=== PATIENT | male | born 1995 | race Caucasian/White ===

== ENCOUNTER 2016-10-29 16:39 | Emergency (ER) | payer OTHER ==
[~2016-10-29] VITALS: Ht 170.2 cm; Wt 61.3 kg
[2016-10-29 16:51] VITALS: TEMP 36.5; Ht 170.2 cm; Wt 61.3 kg
[2016-10-29] MEDS ORDERED: PROPARACAINE HCL 0.5% OP SOLN 15 ML BTL ONE (16:54)
--- NOTE | 2016-10-29 17:35 | EMERGENCY ROOM VISIT NOTE ---
ED Visit Note First contact with patient: 17:08 CHIEF COMPLAINT: Foreign body of the eye HISTORY OF PRESENT ILLNESS: This 20-year-old male patient presents to the emergency department approximately 9 hours after getting pieces of wood in his right eye. Patient states he was working, cutting a 2 x 4 piece of wood with a circular saw, while wearing safety glasses, when he began experiencing extreme pain and foreign body sensation in his right eye. He attempted to flush the eye several times with water, and states he had several people look at his eye for foreign body. He has not been able to locate the foreign body. Patient is currently Complaining of pain and foreign body sensation in the aspect of the right eye eye. Pain is worse when looking towards the right. There has been a constant moderate pain and irritation, redness and tearing in the eye. The vision has not been decreased over all, however patient does complain of blurriness in the right eye. The patient does not wear contacts. The patient rates the pain as 7/10. The patient has not had previous injuries to this eye. Tetanus shot is up to date. REVIEW OF SYSTEMS: A 6 system review of systems was completed with positives and pertinent negatives listed in the HPI. ALLERGIES: None MEDICATIONS: None PMH: None SOCIAL HISTORY: Patient lives locally with his family. Patient reports occasional alcohol use, smokes 1 pack of cigarettes per day, denies drug use. PHYSICAL EXAM: Vital Signs: Reviewed Nurse's notes, vital signs stable. Visual acuity 20/20. GENERAL: This is a 20-year-old male, in no acute distress, but who is uncomfortable from the eye problem. Well-developed well-nourished. EYES : The pupils are equal round and reactive to light and accommodation. EOMs are full and without tenderness. There is watery discharge from the right eye which is injected. There is no visible abrasion on the cornea. There is no foreign body visible under the eyelid after lid eversion. No foreign body was seen embedded in the cornea under slit lamp exam. The cornea was clear and no hyphema was seen. Fluorescein uptake was observed with ultraviolet light significant for several small corneal abrasions, to the right of the pupil. EMERGENCY DEPARTMENT COURSE: I examined the patient. Alcaine 2 drops were placed in the patient's right eye. A slit lamp exam was performed as above. Verbal consent was obtained to perform the procedure. Pt's eye flushed via Ziggy Lens irrigation with 1000mL NSS. The patient was discharged home in good condition, but advised to use antibiotic ointment and pain medication as prescribed. DIAGNOSIS: Foreign body with subsequent corneal abrasion of the right eye DISCHARGE INSTRUCTIONS AND TREATMENT: Use erythromycin ointment 6 times per day for 10 days unless otherwise instructed by ophthalmology. Use Ibuprofen 600 mg or Tylenol 1000 mg every 6 hrs as needed for moderate pain. Use Tylenol #3 tablet every four to six hours when pain breaks through the Ibuprofen or Tylenol. See your eye doctor in 24-48 hours for a recheck. Return to the ED for increasing pain or changes in vision. Problem List Medical Problems: (1) No significant medical problems Status: Chronic (2) No significant past surgical history Status: Chronic Current/Historical Medications Scheduled Erythromycin Opth (Erythromycin Opth), 1 CM OPR Q4 Scheduled PRN Acetaminophen/Codeine (Tylenol W/Codeine #3), 1 TAB PO Q4H PRN for Pain Allergies Coded Allergies: No Known Allergies (Unverified , 07/31/14) Vital Signs Date Time Temp Pulse Resp B/P (MAP) Pulse Ox O2 Delivery O2 Flow Rate FiO2 10/29/16 16:51 36.5 65 20 121/81 99 Room Air Medications Administered Medications (Trade) Dose Ordered Sig/Machelle Route Start Time Stop Time Status Last Admin Dose Admin Proparacaine HCl (Alcaine 0.5% Oph Soln) 225 drops STK-MED ONCE .ROUTE 10/29/16 16:54 10/29/16 16:55 DC 10/29/16 17:37 225 DROPS Departure Information Impression Primary Impression: Cornea abrasion Dispostion Home / Self-Care Condition GOOD Prescriptions Acetaminophen/Codeine (Tylenol W/Codeine #3) 300 Mg/30 Mg Tab 1 TAB PO Q4H Y for Pain, #18 TAB For Initial Treatment Prov: Humaira Acuna PA-C 10/29/16 Erythromycin Opth (ERYTHROMYCIN OPTH) 12 Appln/3.5 Gm Oint 1 CM OPR Q4 for 7 Days, #1 TUBE 0 Refills Prov: Humaira Acuna PA-C 10/29/16 Referrals No Doctor, Assigned (PCP) Cristi Drake M.D. 1-2 days Patient Instructions My [facility] Additional Instructions You have been treated in the Emergency Department today for your Corneal Abrasion. You have been prescribed Tylenol #3 to be used for pain control. This is a narcotic medication. You cannot drive or consume alcohol while on this medicine. This medicine should only be used for pain that cannot be controlled with juqv-vwf-septjjy pain medicines. You have been prescribed Erythromycin Opthalmic ointment. This is an antibiotic ointment which will help prevent an infection from developing in your affected eye. You should apply a 1 cm ribbon of the ointment to the lower part of the affected eye up to 6 times per day for the next 10 days. For pain control, you can use the following eicr-jrz-qlodlrq medicines (if >12 yo): - Regular strength (325mg/tab) Tylenol (acetaminophen) 2 tabs every 4-6 hours as needed. Do not exceed 12 tablets in a 24 hour period. Avoid taking more than 4 grams (4000 mg) of Tylenol per day. This includes any other sources of acetaminophen you may take on a regular basis and including Tylenol with codeine prescribed today. - Regular strength (200 mg/tab) Advil (ibuprofen) 1-2 tabs every 4-6 hours as needed. Do not exceed a dose of 3200 mg per day. You should relax in a quiet, dark place for the rest of the day. You should wear sunglasses while outside for the next few days until your eyes are not as sensitive to the light. You should schedule a follow-up appointment in 1-2 days with Eye Doctor ( Dog Sitter) for further evaluation and treatment of your Corneal Abrasion. Return to the Emergency Department if your current symptoms worsen despite treatment course outlined above, or if you develop any of the following symptoms : intractable pain, visual disturbances, loss of vision, increased redness, swelling, drainage, or if you develop a fever. Problem Qualifiers Primary Impression: Cornea abrasion Encounter type: initial encounter Laterality: right Qualified Codes: S05.01XA - Injury of conjunctiva and corneal abrasion without foreign body, right eye, initial encounter
[2016-10-29] MEDS ORDERED: ERYOPO OPR (18:37)
[2016-10-29] MEDS ORDERED: ACET-749 PO (18:37)
[2016-10-29 18:51] VITALS: BP 112/93; PULSE 74; O2SAT 98
== END 2016-10-29 18:54 | disposition home or self-care (01) ==
LOC: C.EDB 16:39 → C.EDD 18:54
DX: S05.01XA Injury of conjunctiva and corneal abrasion without foreign body, right eye, initial encounter (principal); W20.8XXA Other cause of strike by thrown, projected or falling object, initial encounter; Y99.0 Civilian activity done for income or pay; Y93.89 Activity, other specified; F17.210 Nicotine dependence, cigarettes, uncomplicated

== ENCOUNTER 2016-11-05 01:03 | Emergency (ER) | payer SELFPAY ==
[~2016-11-05] VITALS: Ht 167.6 cm; Wt 62.9 kg
[~2016-11-05 01:03] MED LIST changes: -IBUP-103 PO; -OXYC1TAB3 PO
[2016-11-05 01:08] VITALS: TEMP 36.6; Ht 167.6 cm; Wt 62.9 kg
[2016-11-05] MEDS ORDERED: SODIUM CHLORIDE 0.9% 1000ML 1,000 ML IV STA (01:11)
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
[2016-11-05 01:35] LABS: URINE APPEARANCE CLEAR (CLEAR); URINE BILIRUBIN NEG (NEG); URINE COLOR YELLOW; URINE NITRITE NEG (NEG); URINE SPECIFIC GRAVITY 1.008 (1.000-1.030); UROBILINOGEN NEG (NEG)
[2016-11-05 01:37] LABS: MANUAL MICROSCOPIC REQUIRED? NO; REVIEW REQ? NO
[2016-11-05 01:44] LABS: HEMATOCRIT 44.4 % (42-52); MEAN CELL VOLUME 92.5 fL (80-100); MEAN CORPUSCULAR HEMOGLOBIN 33.1 pg (25-34); MEAN CORPUSCULAR HGB CONC 35.8 g/dl (32-36); MEAN PLATELET VOLUME 8.4 fL (7.4-10.4); PLATELET COUNT 294 K/uL (130-400); WHITE BLOOD COUNT 7.75 K/uL (4.8-10.8)
[2016-11-05 01:45] VITALS: O2SAT 98
[2016-11-05 02:01] LABS: BENZODIAZEPINE, URINE NEG (NEG); COCAINE,URINE NEG (NEG); PHENCYCLIDINE, URINE NEG (NEG)
[2016-11-05 02:14] LABS: AST/SGOT 114 U/L (15-37)
[2016-11-05 02:19] LABS: ALKALINE PHOSPHATASE 84 U/L (45-117); ALT/SGPT 234 U/L (12-78); BLOOD UREA NITROGEN 9 mg/dl (7-18); BUN/CREATININE RATIO 13.9 (10-20); CALCIUM 7.9 mg/dl (8.5-10.1); CARBON DIOXIDE 25 mmol/L (21-32); CHLORIDE 108 mmol/L (98-107); CREATININE 0.72 mg/dl (0.60-1.40); GLUCOSE 93 mg/dl (70-99)
[2016-11-05 02:24] LABS: SODIUM 145 mmol/L (136-145)
[2016-11-05 05:02] VITALS: BP 98/65
[2016-11-05 06:00] VITALS: PULSE 83; O2SAT 100
--- NOTE | 2016-11-05 07:17 | DIAGNOSTIC IMAGING REPORT ---
HEAD CT NONCONTRAST CT DOSE: 537.48 mGy.cm HISTORY: head pain TECHNIQUE: Multiaxial CT images of the head were performed without the use of intravenous contrast. Automated exposure control was utilized for this study. Comparison: Head CT 05/27/2013. Findings: The paranasal sinuses and mastoid air cells are clear. The calvarium and skull base are intact. The ventricles and sulci are within normal limits. There is no mass, hematoma, midline shift, or acute infarct. Impression: No acute intracranial abnormality. Electronically signed by: Fede Reyes M.D. 11/05/2016 7:16 AM Dictated Date/Time: 11/05/2016 7:13 AM
== END 2016-11-05 06:30 | disposition home or self-care (01) ==
LOC: EDBD 01:03 → C.EDA 01:04
DX: F10.129 Alcohol abuse with intoxication, unspecified (principal); S09.90XA Unspecified injury of head, initial encounter; F17.200 Nicotine dependence, unspecified, uncomplicated; W50.0XXA Accidental hit or strike by another person, initial encounter

== ENCOUNTER → 2016-11-05 | Outpatient (CLI) | payer OTHER ==
[~2016-11-05] MED LIST: ACET-749 PO; ERYOPO OPR; IBUP-103 PO; OXYC1TAB3 PO
== END | disposition home or self-care (01) ==
LOC: C.LAB 01:19
DX: Z02.83 Encounter for blood-alcohol and blood-drug test (principal)

== ENCOUNTER → 2017-01-12 | Outpatient (CLI) | payer OTHER ==
[~2017-01-12] MED LIST changes: +OXYC1TAB3 PO
== END | disposition home or self-care (01) ==
LOC: C.LAB 07:03
DX: Z02.83 Encounter for blood-alcohol and blood-drug test (principal)

== ENCOUNTER 2017-03-05 18:06 | Emergency (ER) | payer OTHER ==
[~2017-03-05] VITALS: Ht 167.6 cm; Wt 61.0 kg
[~2017-03-05 18:06] MED LIST changes: -OXYC1TAB3 PO
[2017-03-05 18:35] VITALS: TEMP 36.6; Ht 167.6 cm; Wt 61.0 kg
[2017-03-05] MEDS ORDERED: OXYCODONE HCL IR 5 MG TAB (IMMEDIATE RELEASE) PO STA (19:00)
--- NOTE | 2017-03-05 19:25 | DIAGNOSTIC IMAGING REPORT ---
LEFT FOOT 3 VIEWS CLINICAL HISTORY: Left foot pain status post trauma COMPARISON: None. DISCUSSION: No acute fractures or dislocations are visualized. IMPRESSION: No fractures identified. Electronically signed by: Pedro Vann M.D. 03/05/2017 7:24 PM Dictated Date/Time: 03/05/2017 7:22 PM
--- NOTE | 2017-03-05 19:26 | DIAGNOSTIC IMAGING REPORT ---
Left tibia and fibula 2 VIEWS CLINICAL HISTORY: Left lower leg pain status post trauma COMPARISON: None. DISCUSSION: No fractures or dislocations are visualized. IMPRESSION: No fractures identified. Electronically signed by: Pedro Vann M.D. 03/05/2017 7:25 PM Dictated Date/Time: 03/05/2017 7:24 PM
[2017-03-05] MEDS ORDERED: OXYCODONE IR HOME PACK PO STA (19:34)
[2017-03-05] MEDS ORDERED: OXYC1TAB3 PO (19:36)
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
[2017-03-05 20:24] VITALS: BP 112/66; PULSE 87; O2SAT 97
== END 2017-03-05 20:24 | disposition home or self-care (01) ==
LOC: C.EDB 18:09 → C.EDD 20:24
DX: M79.672 Pain in left foot (principal); X50.9XXA Other and unspecified overexertion or strenuous movements or postures, initial encounter; F17.200 Nicotine dependence, unspecified, uncomplicated

== ENCOUNTER 2017-04-10 15:45 | Emergency (ER) | payer SELFPAY ==
[~2017-04-10] VITALS: Ht 167.6 cm; Wt 59.7 kg
[~2017-04-10 15:45] MED LIST changes: -ACET-749 PO; -ERYOPO OPR; +OXYC1TAB3 PO
[2017-04-10 15:51] VITALS: TEMP 36.5; Ht 167.6 cm; Wt 59.7 kg
[2017-04-10] MEDS ORDERED: OXYCODONE HCL IR 5 MG TAB (IMMEDIATE RELEASE) PO STA (15:57)
--- NOTE | 2017-04-10 16:15 | EMERGENCY ROOM VISIT NOTE ---
History Report prepared by Don: Dorita Reyes Under the Supervision of: Mely ErnstO. First contact with patient: 15:54 Chief Complaint: RIB PAIN Stated Complaint: BROKEN RIB OR TORN MUSCLE History of Present Illness The patient is a 21 year old male who presents to the Emergency Room with complaints of constant left-sided rib pain secondary to a fall occurring yesterday afternoon. The patient was carrying wood in his arms and tripped and fell. He threw the wood aside but saw unable to get his arms out in front of him to catch himself. He landed on the ground on his left shoulder and the left side of his chest. He has been having pain since this fall. Last night the patient took ibuprofen for pain and placed ice on the area. Today he is continuing to have pain. The patient rates his pain as a 7/10 in severity. Coughing, sneezing, and deep inspiration exacerbate his pain. This morning he had some nausea. The patient denies any abdominal pain. He has had some mild back pain as well. Source of History: patient Onset: yesterday afternoon Position: other (left-sided ribs) Symptom Intensity: 7/10 Timing: constant Modifying Factors (Worsening): breathing, other (cough/sneezing) Modifying Factors (Relieving): ibuprofen, ice Associated Symptoms: + nausea, + back pain, No abdominal pain Review of Systems See HPI for pertinent positives & negatives. A total of 10 systems reviewed and were otherwise negative. Past Medical & Surgical Medical Problems: (1) No significant medical problems (2) No significant past surgical history Family History No pertinent family history Social History Smoking Status: Current Every Day Smoker Alcohol Use: occasionally Marital Status: single Housing Status: lives with family Occupation Status: employed Current/Historical Medications Scheduled PRN Ibuprofen Tab (Advil), 400 MG PO Q6H PRN for Pain Oxycodone Immediate Rel Tab (Roxicodone Ir), 1-2 TAB PO Q4H PRN for Severe Pain Allergies Coded Allergies: No Known Allergies (Unverified , 03/05/17) Physical Exam Vital Signs Date Time Temp Pulse Resp B/P (MAP) Pulse Ox O2 Delivery O2 Flow Rate FiO2 04/10/17 17:07 80 16 123/99 99 04/10/17 16:25 98 Room Air 04/10/17 15:51 36.5 92 18 120/79 96 Room Air Physical Exam GENERAL: Patient is awake, alert, and in no acute distress. Patient is resting comfortably and showing no signs of anxiety EYES: The conjunctivae are clear. The pupils are round and reactive. EARS, NOSE, MOUTH AND THROAT: The nose is without any evidence of any deformity. Mucous membranes are moist tongue is midline NECK: The neck is nontender and supple. RESPIRATORY: Normal respiratory effort is noted there is no evidence of wheezing rhonchi or rales CARDIOVASCULAR: Regular rate and rhythm noted there no murmurs rubs or gallops normal S1 normal S2 GASTROINTESTINAL: The abdomen is soft. Bowel sounds are present in all quadrants. Abdomen is nontender BACK: No midline tenderness or or step-off noted range of motion in flexion extension as well as rotation no signs of muscle spasm noted MUSCULOSKELETAL/EXTREMITIES: There is no evidence of gross deformity full range of motion is noted in the hips and shoulders. Significant left lateral rib tenderness as well as sternal tenderness to palpation, no crepitus. SKIN: There is no obvious evidence of any rash. There are no petechiae, pallor or cyanosis noted. NEUROLOGIC: Patient is awake alert and oriented x3 Medical Decision & Procedures ER Provider Diagnostic Interpretation: Radiology results as stated below per my review and radiologist interpretation: L RIBS UNILATERAL WITH PA CHEST HISTORY: 21 years-old Male fall acute anterior chest wall pain with cough and shortness of breath status post trauma COMPARISON: None available TECHNIQUE: PA view of the chest with 4 views of the left ribs FINDINGS: Cardiomediastinal and hilar silhouettes are within normal limits. There is no pneumothorax, pleural effusion, focal airspace consolidation or overt pulmonary edema. The bones of the chest appear intact. No acute displaced rib fracture identified. IMPRESSION: 1. No acute cardiopulmonary process. 2. No acute displaced rib fracture or pneumothorax. The above report was generated using voice recognition software. It may contain grammatical, syntax or spelling errors. Electronically signed by: Jose Roe M.D. 04/10/2017 4:28 PM Dictated Date/Time: 04/10/2017 4:26 PM Medications Administered Medications (Trade) Dose Ordered Sig/Machelle Route Start Time Stop Time Status Last Admin Dose Admin Oxycodone HCl (Roxicodone Immediate Rel Tab) 5 mg NOW STAT PO 04/10/17 15:57 04/10/17 15:58 DC 04/10/17 16:20 5 MG ED Course 1554: The patient was evaluated in room C11B. A complete history and physical examination were performed. 1557: Oxycodone HCl 5 mg PO 1643: I reassessed the patient at this time. He is feeling better and resting comfortably. I discussed the results and treatment plan with the patient. I answered all pertaining questions that he had. He expressed understanding and verbalized agreement. The patient will be discharged home. Medical Decision Differential diagnosis: Etiologies such as fracture, dislocation, neurovascular compromise, compartment syndrome, soft tissue injury, as well as others were entertained. Nursing notes reviewed. The patient is a 21-year-old male who presented to emergency department after an injury to his chest wall. The patient fell while carrying an object. He landed onto his left side. He had significant left rib pain as well as sternal pain. X-rays did not reveal any acute abdomen abnormalities. I discussed his radiographic studies with him. He was treated with pain medication. At this time I do feel he may have a clinical rib fracture. I discussed this possibility with him. He was encouraged to rest and avoid any strenuous activity. He was also encouraged to follow-up with his family doctor soon as possible for further evaluation. He was also encouraged return to emergency department immediately if symptoms change worsen or the need arises. Medication Reconcilliation Current Medication List: was personally reviewed by me Blood Pressure Screening Patient's blood pressure: Normal blood pressure Impression Primary Impression: Fall Additional Impressions: Contusion of rib on left side Chest wall contusion Scribe Attestation The scribe's documentation has been prepared under my direction and personally reviewed by me in its entirety. I confirm that the note above accurately reflects all work, treatment, procedures, and medical decision making performed by me. Departure Information Dispostion Home / Self-Care Prescriptions Oxycodone Immediate Rel Tab (ROXICODONE IR) 5 Mg Tab 1-2 TAB PO Q4H Y for Severe Pain, #24 TAB Prov: Cristi Trejo, DO 04/10/17 Referrals No Doctor, Assigned (PCP) Forms HOME CARE DOCUMENTATION FORM, IMPORTANT VISIT INFORMATION, WORK / SCHOOL INSTRUCTIONS Patient Instructions ED Contusion Vs Minor Fx Rib, [facility] Additional Instructions Continue using Motrin and Tylenol for pain. Rest and avoid any strenuous activity. Follow-up with your family doctor for repeat x-rays if symptoms are not improved in 1 week. Return to the emergency apartment immediately if symptoms change worsen or need arises. Continue using Motrin and Tylenol as directed for pain. Problem Qualifiers Primary Impression: Fall Encounter type: initial encounter Qualified Codes: W19.XXXA - Unspecified fall, initial encounter Additional Impressions: Contusion of rib on left side Encounter type: initial encounter Qualified Codes: S20.212A - Contusion of left front wall of thorax, initial encounter Chest wall contusion Encounter type: initial encounter Laterality: unspecified laterality Qualified Codes: S20.219A - Contusion of unspecified front wall of thorax, initial encounter
[2017-04-10 16:25] VITALS: O2SAT 98
--- NOTE | 2017-04-10 16:29 | DIAGNOSTIC IMAGING REPORT ---
L RIBS UNILATERAL WITH PA CHEST HISTORY: 21 years-old Male fall acute anterior chest wall pain with cough and shortness of breath status post trauma COMPARISON: None available TECHNIQUE: PA view of the chest with 4 views of the left ribs FINDINGS: Cardiomediastinal and hilar silhouettes are within normal limits. There is no pneumothorax, pleural effusion, focal airspace consolidation or overt pulmonary edema. The bones of the chest appear intact. No acute displaced rib fracture identified. IMPRESSION: 1. No acute cardiopulmonary process. 2. No acute displaced rib fracture or pneumothorax. The above report was generated using voice recognition software. It may contain grammatical, syntax or spelling errors. Electronically signed by: Jose Roe M.D. 04/10/2017 4:28 PM Dictated Date/Time: 04/10/2017 4:26 PM
[2017-04-10] MEDS ORDERED: IBUP-103 PO (16:32)
[2017-04-10] MEDS ORDERED: OXYC1TAB3 PO (16:39)
[2017-04-10 17:07] VITALS: BP 123/99; PULSE 80; O2SAT 99
== END 2017-04-10 17:09 | disposition home or self-care (01) ==
LOC: C.EDB 15:46 → C.EDC 17:09
DX: S20.212A Contusion of left front wall of thorax, initial encounter (principal); W01.0XXA Fall on same level from slipping, tripping and stumbling without subsequent striking against object, initial encounter; Y92.89 Other specified places as the place of occurrence of the external cause; F17.210 Nicotine dependence, cigarettes, uncomplicated

== ENCOUNTER 2018-08-28 14:40 | Inpatient (IN) ==
[2018-08-28] MEDS ORDERED: ONDANSETRON INJ 2 MG/ML 2 ML VIAL IV STA (14:46)
[2018-08-28] MEDS ORDERED: LORazepam 2 MG/4 ML VIAL IV STA ×2 (14:46→14:54)
[2018-08-28] MEDS ORDERED: SODIUM CHLORIDE 0.9% 1000ML 2,000 ML IV SCH (15:00)
[2018-08-28 15:08] LABS: Hematocrit (blood only) 49.6 % (42-52); Hemoglobin 17.4 g/dL (14.0-18.0); Mean Corpuscular Hgb Conc 35.1 g/dL (32-36); Mean Corpuscular Volume 93.2 fL (80-100); Mean Platelet Volume 9.1 fL (7.4-10.4); Platelet Count 423 K/uL (130-400); RDW Coefficient of Variation 12.5 % (11.5-14.5); RDW Standard Deviation 42.7 fL (36.4-46.3); Red Blood Count 5.32 M/uL (4.7-6.1)
[2018-08-28] MEDS ORDERED: HALOPERIDOL LACTATE 5 MG/ML 1 ML VIAL ONE (15:16)
[2018-08-28 15:19] LABS: INR 1.3 (0.9-1.1); Prothrombin Time 12.9 Seconds (9.0-12.0)
[2018-08-28] MEDS ORDERED: DiphenhydrAMINE HCL 50 MG/ML VIAL IV STA (15:20)
[2018-08-28 15:28] LABS: Albumin Level 4.3 gm/dl (3.4-5.0); BUN Creatinine Ratio 15.5 (10-20); Calcium 8.6 mg/dl (8.5-10.1); Creatinine Clr Calc Pharmacy 37.7 ml/min; Potassium 4.9 mmol/L (3.5-5.1)
[2018-08-28 15:29] LABS: Basophils # (auto) 0.02 K/uL (0-0.2); Basophils % (auto) 0.1 %; Eosinophils # (auto) 0.02 K/uL (0-0.5); Eosinophils % (auto) 0.1 %; Immature Granulocytes # (auto) 0.18 K/uL (0.00-0.02); Immature Granulocytes % (auto) 0.9 %; Lymphocytes % (auto) 13.3 %; Monocytes # (auto) 0.63 K/uL (0.11-0.59); Neutrophils # (auto) 17.35 K/uL (1.4-6.5); Neutrophils % (auto) 82.6 %
[2018-08-28 15:30] LABS: Bilirubin,Total 0.9 mg/dl (0.2-1); Globulin 4.1 gm/dl (2.5-4.0); Total Protein 8.4 gm/dl (6.4-8.2)
[2018-08-28 15:32] LABS: Salicylate < 1.7 mg/dl (2.8-20)
[2018-08-28 15:33] LABS: Acetaminophen < 2 ug/ml (10-30)
[2018-08-28 15:39] LABS: Amphetamines+Metham, Urine Pos (Neg); Barbiturates, Urine Neg (Neg); Benzodiazepine, Urine Neg (Neg); Cocaine, Urine Neg (Neg); MDMA (Ecstacy), Urine Pos (Neg); Methadone, Urine Neg (Neg); Opiate, Urine Pos (Neg); Phencyclidine, Urine Neg (Neg)
[2018-08-28 15:51] LABS: iSTAT Arterial Blood Gas HCO3 22 meg/L (19-24); iSTAT Arterial Blood Gas pCO2 62 mmHg (35-46); iSTAT Arterial Blood Gas pH 7.16 (7.35-7.45); iSTAT Carbon Dioxide 24 mEq/l (24-31); iSTAT Hematocrit 42 % (42-52); iSTAT Hemoglobin 14.3 g/dl (14.0-18.0); iSTAT Potassium 4.6 mEq/L (3.3-5.0); iSTAT Sodium 137 mEq/L (135-144)
--- NOTE | 2018-08-28 16:01 | XRay Report ---
XR chest 1V portable HISTORY: 22 years-old Male AMS acutely altered mental status COMPARISON: Chest and rib radiographs 04/10/2017 TECHNIQUE: Portable AP view of the chest FINDINGS: Hazy perihilar opacities are noted throughout the left lung in a perihilar predominant distribution. Additional ill-defined opacities are noted about the right suprahilar lung and right lung apex. Bones appear intact. No opaque foreign body. IMPRESSION: Asymmetric opacities throughout the left lung within a perihilar predominant distribution and also wi thin the right lung apex are suspicious for multifocal pneumonia in the appropriate clinical setting. The above report was generated using voice recognition software. It may contain grammatical, syntax o r spelling errors. Electronically signed by: Jose Roe M.D. 08/28/2018 4:00 PM
[2018-08-28 16:10] LABS: Magnesium 3.4 mg/dl (1.8-2.4)
--- NOTE | 2018-08-28 16:14 | CT Scan Report ---
CT head/brain wo con CLINICAL HISTORY: 22 years-old Male with AMS. Acutely altered mental status with drug abuse TECHNIQUE: Multiple axial CT images of the head were obtained without contrast. A dose lowering tech nique was utilized adhering to the principles of ALARA. CT DOSE: 537.48 mGy.cm COMPARISON: CT head 11/05/2016 FINDINGS: No acute intracranial hemorrhage, midline shift, intracranial mass, hydrocephalus, territorial ischem ia or abnormal extra-axial collection. The calvarium is intact. The paranasal sinuses, mastoid air cells, and middle ear cavities are clear . IMPRESSION: No acute intracranial abnormality. The above report was generated using voice recognition software. It may contain grammatical, syntax o r spelling errors. Electronically signed by: Jose Roe M.D. 08/28/2018 4:12 PM
[2018-08-28 16:15] LABS: iSTAT Arterial Blood Gas HCO3 17 meg/L (19-24); iSTAT Arterial Blood Gas pCO2 42 mmHg (35-46); iSTAT Arterial Blood Gas pH 7.22 (7.35-7.45); iSTAT Carbon Dioxide 19 mEq/l (24-31)
[2018-08-28] MEDS ORDERED: PIPERACILL/TAZOBAC CONSULT ACTIVE PRN (16:17)
[2018-08-28] MEDS ORDERED: PIPERACILLIN/TAZOBACTAM 4.5 GM/120 ML BAG IV ONE (16:17)
[2018-08-28 16:20] LABS: Troponin I 0.07 ng/ml (0-0.045)
[2018-08-28] MEDS ORDERED: ICU PROTOCOL FOR HYPERGLYCEMIA PRN (17:11)
--- NOTE | 2018-08-28 17:23 | Emergency Department Note ---
Entered by Nupur Holland acting as a scribe for Nery Carrington MD History of Present Illness General Chief complaint: Overdose (Intentional) Stated complaint: drug overdose/cardiac Time Seen by Provider: 08/28/18 14:46 Source: EMS Limitations: altered mental status History of Present Illness Provider complaint: overdose Onset (ago): hour(s) (today) Location: left and right Quality: + other (overdose) Treatments prior to arrival: other (Narcan) The patient is a 22 year old male who presents to the Emergency Room with an overdose today. Per EMS, the patient reportedly overdosed on methamphetamine and heroin and got out of [facility] 2 weeks ago. Per EMS, the patient was in [facility] for 30 days and then was in [facility] for 30 days. EMS states that the patient was in respiratory arrest. He was given Narcan by the police and CPR was initiated. Upon EMS arrival, the patient had a cardiac rhythm and began to respond. History is limited due to altered mental status. Home Medications Home Medications Medication Instructions Recorded Confirmed Type Unobtainable 08/28/18 08/28/18 History Allergies Allergy/AdvReac Type Severity Reaction Status Date / Time No Known Allergies Allergy Unverified 03/05/17 18:45 Past Med/Surg History Medical History Drug abuse (Acute) Pulmonary contusion (Resolved) Social History Smoking Status: Current every day smoker Hx Substance Use: Yes Review of Systems Limited ROS secondary to AMS. Physical Exam Vital Signs Vital Signs - 24 hr 08/28/18 14:52 08/28/18 15:13 08/28/18 15:38 Temperature 32.8 C L Temperature Source Rectal Sepsis Recent Fever Within 48 Hours No Sepsis New/Unexplained Change in Mental Status No Sepsis Action Taken by Nursing No Action Required Pulse Rate 119 H Pulse Rate [Apical] 127 H Pulse Rhythm Regular Pulse Strength Normal Respiratory Rate 26 H 30 H Respiratory Effort / Characteristics Non-Labored Respiratory Pattern Regular Blood Pressure 180/118 H Blood Pressure [Right Thigh] 95/59 L Blood Pressure Mean 138 Blood Pressure Mean [Right Thigh] 71 Blood Pressure Position [Right Thigh] Lying Pulse Oximetry 90 Oxygen Delivery Method Room Air Non-rebreather Oxygen Flow Rate 10 08/28/18 16:16 08/28/18 17:11 08/28/18 17:45 Temperature Temperature Source Sepsis Recent Fever Within 48 Hours Sepsis New/Unexplained Change in Mental Status Sepsis Action Taken by Nursing Pulse Rate Pulse Rate [Apical] 115 H 121 H 121 H Pulse Rhythm Pulse Strength Respiratory Rate 30 H 35 H 33 H Respiratory Effort / Characteristics Respiratory Pattern Blood Pressure Blood Pressure [Right Thigh] 110/64 119/50 L 99/81 L Blood Pressure Mean Blood Pressure Mean [Right Thigh] 79 73 87 Blood Pressure Position [Right Thigh] Lying Pulse Oximetry 100 96 98 Oxygen Delivery Method Non-rebreather Oxymask Oxymask Oxygen Flow Rate 10 10 10 08/28/18 18:08 Temperature Temperature Source Sepsis Recent Fever Within 48 Hours Sepsis New/Unexplained Change in Mental Status Sepsis Action Taken by Nursing Pulse Rate Pulse Rate [Apical] 108 H Pulse Rhythm Pulse Strength Respiratory Rate 22 Respiratory Effort / Characteristics Respiratory Pattern Blood Pressure Blood Pressure [Right Thigh] 108/73 Blood Pressure Mean Blood Pressure Mean [Right Thigh] 84 Blood Pressure Position [Right Thigh] Pulse Oximetry 97 Oxygen Delivery Method Room Air Oxygen Flow Rate Vital signs reviewed. General: Disheveled, agitated, moaning. Being restrained by security. Hypothermic. No signs of trauma. HEENT: Mild scleral injection bilaterally, PERRLA, neck supple, dry mucous membranes. Cardiovascular: Tachycardic rate and regular rhythm, no extra sounds. Pulmonary: Coarse breath sounds bilaterally, normal work of breathing. On nonrebreather Abdomen: Soft, nontender, nondistended, positive bowel sounds. Musculoskeletal: Upper and lower extremities atraumatic, no peripheral edema Skin: Warm, dry, no rash. Atraumatic. Neurologic: Patient is currently nonverbal. Course 1445: Past medical records reviewed. The patient was evaluated in room A1, and a complete history and physical examination were performed. 1502: I updated the patient's parents. 1622: I reevaluated the patient. He does respond to a sternal rub. His O2 sat is 100% on a non-rebreather. He is getting IV fluids. 1633: I discussed the patient's case with Dr. Ivan Pedraza who will evaluate the patient for further management. Consultations Consultation #1: Dr. Ivan Pedraza Time: 16:33 Administered Medications Discontinued Medications Diphenhydramine HCl (Benadryl) 50 mg IV NOW STA Stop: 08/28/18 15:21 Last Admin: 08/28/18 15:37 Dose: 50 mg Documented by: [id number] Haloperidol Lactate (Haldol) Confirm Administered Dose 5 mg .ROUTE .STK-MED ONE Stop: 08/28/18 15:17 Last Admin: 08/28/18 15:19 Dose: 5 mg Documented by: [id number] Lorazepam (Ativan) 2 mg in 4 mls @ 4 mls/min IV NOW STA Stop: 08/28/18 14:47 Last Admin: 08/28/18 15:14 Dose: 4 mls/min Documented by: [id number] Sodium Chloride (Nss 1000ml) 2,000 mls @ 999 mls/hr IV .Q2H1M BHAVANI Stop: 08/28/18 17:00 Last Infusion: 08/28/18 17:19 Dose: 0 mls/hr Documented by: [id number] Admin: 08/28/18 15:14 Dose: 999 mls/hr Documented by: [id number] Lorazepam (Ativan) 2 mg in 4 mls @ 4 mls/min IV NOW STA Stop: 08/28/18 14:55 Last Admin: 08/28/18 14:55 Dose: 4 mls/min Documented by: [id number] Piperacillin Sod/Tazobactam Sod (Zosyn) 4.5 gm in 120 mls @ 240 mls/hr IV NOW ONE Stop: 08/28/18 16:46 Last Infusion: 08/28/18 17:50 Dose: 0 mls/hr Documented by: [id number] Admin: 08/28/18 16:34 Dose: 240 mls/hr Documented by: [id number] Ondansetron HCl (Zofran) 4 mg IV NOW STA Stop: 08/28/18 14:47 Last Admin: 08/28/18 15:37 Dose: 4 mg Documented by: [id number] Medical Decision Making Differential Diagnosis The differential diagnosis of the patient's presentation includes alcohol ingestion, illicit drug use, trauma, and dehydration. Medical Records Attestation: I reviewed the patient's medical records. Home Medications Current Medication List: was personally reviewed by me Laboratory Data Attestation: I reviewed the patient's lab results. Result diagrams: 08/28/18 14:55 08/28/18 14:55 Lab Results 08/28/18 08/28/18 08/28/18 Range/Units 14:55 14:55 14:55 WBC (4.8-10.8) K/uL RBC (4.7-6.1) M/uL Hgb (14.0-18.0) g/dL POC Hgb (14.0-18.0) g/dl Hct (42-52) % POC Hct (42-52) % MCV (80-100) fL MCH (25-34) pg MCHC (32-36) g/dL RDW Std Deviation (36.4-46.3) fL RDW Coeff of He (11.5-14.5) % Plt Count (130-400) K/uL MPV (7.4-10.4) fL Immature Gran % (Auto) % Neut % (Auto) % Lymph % (Auto) % Bradley % (Auto) % Eos % (Auto) % Baso % (Auto) % Immature Gran # (Auto) (0.00-0.02) K/uL Neut # (Auto) (1.4-6.5) K/uL Lymph # (Auto) (1.2-3.4) K/uL Bradley # (Auto) (0.11-0.59) K/uL Eos # (Auto) (0-0.5) K/uL Baso # (Auto) (0-0.2) K/uL PT 12.9 H (9.0-12.0) Seconds INR 1.3 H (0.9-1.1) POC pH (7.35-7.45) POC pCO2 (35-46) mmHg POC pO2 (80-95) mmHg POC HCO3 (19-24) dk/L POC Total CO2 (24-31) mEq/l POC Base Excess (-9-1.8) dk/L POC ABG O2 Sat (90-95) % POC Sodium (135-144) mEq/L Sodium (136-145) mmol/L POC Potassium (3.3-5.0) mEq/L Potassium (3.5-5.1) mmol/L Chloride (98-107) mmol/L Carbon Dioxide (21-32) mmol/L Anion Gap (3-11) BUN (7-18) mg/dl Creatinine (0.6-1.4) mg/dl Est Cr Clr Drug Dosing ml/min Est GFR ( Amer) Est GFR (Non-Af Amer) BUN/Creatinine Ratio (10-20) Glucose (70-99) mg/dl Lactate (0.4-2.0) mmol/L Calcium (8.5-10.1) mg/dl Magnesium (1.8-2.4) mg/dl Total Bilirubin (0.2-1) mg/dl AST (15-37) U/L ALT (12-78) U/L Alkaline Phosphatase (45-117) U/L Total Creatine Kinase (39-308) U/L Troponin I (0-0.045) ng/ml Total Protein (6.4-8.2) gm/dl Albumin (3.4-5.0) gm/dl Globulin (2.5-4.0) gm/dl Albumin/Globulin Ratio (0.9-2) Salicylates < 1.7 L (2.8-20) mg/dl Urine Opiates Screen (Neg) Ur Methadone, Qual (Neg) Acetaminophen < 2 L (10-30) ug/ml Urine Barbiturates (Neg) Ur Phencyclidine (PCP) (Neg) U Amphetamin/Meth Scrn (Neg) MDMA (Ecstasy) Screen (Neg) U Benzodiazepines Scrn (Neg) Ur Cocaine Metabolite (Neg) U Marijuana (THC) Screen (Neg) Ethyl Alcohol mg/dL < 3.0 (0-3) mg/dl 08/28/18 08/28/18 08/28/18 Range/Units 14:55 14:55 15:10 WBC 21.00 H (4.8-10.8) K/uL RBC 5.32 (4.7-6.1) M/uL Hgb 17.4 (14.0-18.0) g/dL POC Hgb (14.0-18.0) g/dl Hct 49.6 (42-52) % POC Hct (42-52) % MCV 93.2 (80-100) fL MCH 32.7 (25-34) pg MCHC 35.1 (32-36) g/dL RDW Std Deviation 42.7 (36.4-46.3) fL RDW Coeff of He 12.5 (11.5-14.5) % Plt Count 423 H (130-400) K/uL MPV 9.1 (7.4-10.4) fL Immature Gran % (Auto) 0.9 % Neut % (Auto) 82.6 % Lymph % (Auto) 13.3 % Bradley % (Auto) 3.0 % Eos % (Auto) 0.1 % Baso % (Auto) 0.1 % Immature Gran # (Auto) 0.18 H (0.00-0.02) K/uL Neut # (Auto) 17.35 H (1.4-6.5) K/uL Lymph # (Auto) 2.80 (1.2-3.4) K/uL Bradley # (Auto) 0.63 H (0.11-0.59) K/uL Eos # (Auto) 0.02 (0-0.5) K/uL Baso # (Auto) 0.02 (0-0.2) K/uL PT (9.0-12.0) Seconds INR (0.9-1.1) POC pH (7.35-7.45) POC pCO2 (35-46) mmHg POC pO2 (80-95) mmHg POC HCO3 (19-24) dk/L POC Total CO2 (24-31) mEq/l POC Base Excess (-9-1.8) dk/L POC ABG O2 Sat (90-95) % POC Sodium (135-144) mEq/L Sodium 140 (136-145) mmol/L POC Potassium (3.3-5.0) mEq/L Potassium 4.9 (3.5-5.1) mmol/L Chloride 100 (98-107) mmol/L Carbon Dioxide 24 (21-32) mmol/L Anion Gap 16.0 H (3-11) BUN 36 H (7-18) mg/dl Creatinine 2.33 H (0.6-1.4) mg/dl Est Cr Clr Drug Dosing 37.7 ml/min Est GFR ( Amer) 44.0 Est GFR (Non-Af Amer) 38.0 BUN/Creatinine Ratio 15.5 (10-20) Glucose 143 H (70-99) mg/dl Lactate (0.4-2.0) mmol/L Calcium 8.6 (8.5-10.1) mg/dl Magnesium 3.4 H (1.8-2.4) mg/dl Total Bilirubin 0.9 (0.2-1) mg/dl AST 303 H (15-37) U/L ALT 275 H (12-78) U/L Alkaline Phosphatase 111 (45-117) U/L Total Creatine Kinase 849 H (39-308) U/L Troponin I 0.070 H* (0-0.045) ng/ml Total Protein 8.4 H (6.4-8.2) gm/dl Albumin 4.3 (3.4-5.0) gm/dl Globulin 4.1 H (2.5-4.0) gm/dl Albumin/Globulin Ratio 1.0 (0.9-2) Salicylates (2.8-20) mg/dl Urine Opiates Screen Pos H (Neg) Ur Methadone, Qual Neg (Neg) Acetaminophen (10-30) ug/ml Urine Barbiturates Neg (Neg) Ur Phencyclidine (PCP) Neg (Neg) U Amphetamin/Meth Scrn Pos H (Neg) MDMA (Ecstasy) Screen Pos H (Neg) U Benzodiazepines Scrn Neg (Neg) Ur Cocaine Metabolite Neg (Neg) U Marijuana (THC) Screen Pos H (Neg) Ethyl Alcohol mg/dL (0-3) mg/dl 08/28/18 08/28/18 08/28/18 Range/Units 15:37 15:54 16:59 WBC (4.8-10.8) K/uL RBC (4.7-6.1) M/uL Hgb (14.0-18.0) g/dL POC Hgb 14.3 (14.0-18.0) g/dl Hct (42-52) % POC Hct 42 (42-52) % MCV (80-100) fL MCH (25-34) pg MCHC (32-36) g/dL RDW Std Deviation (36.4-46.3) fL RDW Coeff of He (11.5-14.5) % Plt Count (130-400) K/uL MPV (7.4-10.4) fL Immature Gran % (Auto) % Neut % (Auto) % Lymph % (Auto) % Bradley % (Auto) % Eos % (Auto) % Baso % (Auto) % Immature Gran # (Auto) (0.00-0.02) K/uL Neut # (Auto) (1.4-6.5) K/uL Lymph # (Auto) (1.2-3.4) K/uL Bradley # (Auto) (0.11-0.59) K/uL Eos # (Auto) (0-0.5) K/uL Baso # (Auto) (0-0.2) K/uL PT (9.0-12.0) Seconds INR (0.9-1.1) POC pH 7.16 L* 7.22 L (7.35-7.45) POC pCO2 62 H 42 (35-46) mmHg POC pO2 < 32 L 56 L (80-95) mmHg POC HCO3 22 17 L (19-24) dk/L POC Total CO2 24 19 L (24-31) mEq/l POC Base Excess -7.0 -10.0 L (-9-1.8) dk/L POC ABG O2 Sat 83.0 L (90-95) % POC Sodium 137 (135-144) mEq/L Sodium (136-145) mmol/L POC Potassium 4.6 (3.3-5.0) mEq/L Potassium (3.5-5.1) mmol/L Chloride (98-107) mmol/L Carbon Dioxide (21-32) mmol/L Anion Gap (3-11) BUN (7-18) mg/dl Creatinine (0.6-1.4) mg/dl Est Cr Clr Drug Dosing ml/min Est GFR ( Amer) Est GFR (Non-Af Amer) BUN/Creatinine Ratio (10-20) Glucose (70-99) mg/dl Lactate 3.1 H* (0.4-2.0) mmol/L Calcium (8.5-10.1) mg/dl Magnesium (1.8-2.4) mg/dl Total Bilirubin (0.2-1) mg/dl AST (15-37) U/L ALT (12-78) U/L Alkaline Phosphatase (45-117) U/L Total Creatine Kinase (39-308) U/L Troponin I (0-0.045) ng/ml Total Protein (6.4-8.2) gm/dl Albumin (3.4-5.0) gm/dl Globulin (2.5-4.0) gm/dl Albumin/Globulin Ratio (0.9-2) Salicylates (2.8-20) mg/dl Urine Opiates Screen (Neg) Ur Methadone, Qual (Neg) Acetaminophen (10-30) ug/ml Urine Barbiturates (Neg) Ur Phencyclidine (PCP) (Neg) U Amphetamin/Meth Scrn (Neg) MDMA (Ecstasy) Screen (Neg) U Benzodiazepines Scrn (Neg) Ur Cocaine Metabolite (Neg) U Marijuana (THC) Screen (Neg) Ethyl Alcohol mg/dL (0-3) mg/dl Imaging Data Radiologist's Impression: Radiology results as stated below per my review and the radiologist's interpretation: XR chest 1V portable HISTORY: 22 years-old Male AMS acutely altered mental status COMPARISON: Chest and rib radiographs 04/10/2017 TECHNIQUE: Portable AP view of the chest FINDINGS: Hazy perihilar opacities are noted throughout the left lung in a perihilar predominant distribution. Additional ill-defined opacities are noted about the right suprahilar lung and right lung apex. Bones appear intact. No opaque foreign body. IMPRESSION: Asymmetric opacities throughout the left lung within a perihilar predominant distribution and also within the right lung apex are suspicious for multifocal pneumonia in the appropriate clinical setting. The above report was generated using voice recognition software. It may contain grammatical, syntax or spelling errors. Electronically signed by: Jose Roe M.D. 08/28/2018 4:[address] head/brain wo con CLINICAL HISTORY: 22 years-old Male with AMS. Acutely altered mental status with drug abuse TECHNIQUE: Multiple axial CT images of the head were obtained without contrast. A dose lowering technique was utilized adhering to the principles of ALARA. CT DOSE: 537.48 mGy.cm COMPARISON: CT head 11/05/2016 FINDINGS: No acute intracranial hemorrhage, midline shift, intracranial mass, hydrocephalus, territorial ischemia or abnormal extra-axial collection. The calvarium is intact. The paranasal sinuses, mastoid air cells, and middle ear cavities are clear. IMPRESSION: No acute intracranial abnormality. The above report was generated using voice recognition software. It may contain grammatical, syntax or spelling errors. Electronically signed by: Jose Roe M.D. 08/28/2018 4:12 PM ECG Data Attestation: I personally reviewed and interpreted this ECG as follows: Indication: other (overdose) Rate (beats per minute): 123 Rhythm: sinus tachycardia Findings: + other (poor quality baseline for interpretation, QTC 501) and + nonspecific-ST abn Blood Pressure Blood Pressure Findings: Low blood pressure Blood Pressure Disposition: further management by hospitalist KELSI Suarez Laboratory work reveals a leukocytosis and an elevated total CK. Patient is also found to be in acute renal failure with a creatinine of two-pointThis patient was evaluated and appeared to be in critical condition. Patient was placed on the splitting machine tender, pulse ox was difficult to obtain initially. As the patient was agitated and being restrained, 2 mg of Ativan was administered IV. IV fluids were initiated. Patient's EKG reveals sinus tachycardia with a poor quality baseline. Patient is noted to have a marked leukocytosis, elevated total CK of approximately 900 and a total creatinine of 2.33. Urine is significant for methamphetamines, opiates, THC and marijuana. Patient required an additional Ativan 2 mg IV and Benadryl 50 mg IV, IV fluids were continued. Chest x-ray is concerning for infiltrative process. The initial ABG is felt to be erroneous with a pH of 7.16 and a PO2 of less than 32. Repeat ABG was performed with a pH of 7.22 and a PO2 of 56. On my reevaluation, the patient was saturating 100% on nonrebreather. He is noted to be markedly hypothermic and is receiving warmed IV fluids and is on a Shae hugger. The patient may have aspirated during the respiratory arrest. Patient's family was at the bedside briefly however they did leave. Patient was discussed with the hospitalist service will evaluate the patient for further management. Impression & Plan Drug overdose, Altered mental status, Aspiration pneumonia, Respiratory arrest, Hypothermia Critical Care Time I have personally spent greater than 60 minutes of critical care time in the direct management of this patient. This includes bedside care, interpretation of diagnostic studies, and testing, discussion with consultants, patient, and family members, and other required patient management activities. This 60 minutes is in excess of all separately billable procedures. Critical Care Time: Yes Total Critical Care Time: 60 Discharge Plan Visit Data Chief Complaint: Overdose (Intentional) Stated Complaint: drug overdose/cardiac ED Provider: Nery Carrington Discharge Problem: Drug overdose, Altered mental status, Aspiration pneumonia, Respiratory arrest, Hypothermia Patient Disposition: Being Evaluated by Hospitalist Forms Stand Alone Forms: [facility] Prescriptions Prescriptions: No Action Unobtainable RF: 0 Referrals Referrals: PCP,NO [Primary Care Provider] - The scribe's documentation has been prepared under my direction and personally reviewed by me in its entirety. I confirm that the note above accurately reflec ts all work, treatment, procedures, and medical decision making performed by me.
[2018-08-28] MEDS ORDERED: NALOXONE HCL 0.4 MG/1 ML VIAL/CARP IV PRN (17:32)
[2018-08-28] MEDS ORDERED: POTASSIUM CHLORIDE 10 MEQ in SODIUM CHLORIDE 0.45 % 1,000 ML IV SCH (18:15)
--- NOTE | 2018-08-28 18:49 | Critical Care Consultation ---
Date of Consultation August 28, 2018 Assessment & Plan (1) Drug overdose: Neuro- altered mental status due to toxic metabolic encephalopathy due to drug overdose. nothing in history to suggest intentional overdose CV- HD stable. lactic acidosis recheck after fluids Pulmonary- protecting airway for now. titrate fio2 for sat >92%. respiratory arrest at home doubt cardiac arrest ID- infiltrate L lung pneumonia vs pneumonitis. can monitor off abx for now. received one dose of piperacillin-tazobactam in ED Renal- acute renal failure likely prerenal continue fluids GI- NPO for now Heme- leukocytosis. enoxaparin proph Endocrine- keep blood sugar <180 Dispo- admit to ICU for airway monitoring I have personally spent 45 minutes of critical care time in the direct management of this patient. This is a life/limb threatening event. This includes time spent evaluating patient, direct bedside care, chart review, placing orders, interpretation of diagnostic studies, discussion with consultants, patient, and/or family members regarding treatment decisions, as well as other required patient management activities. This time is exclusive of all separately billable procedures, and teaching time and separate from and in addition to any other critical care service time. History of Present Illness Reason for Consultation: altered mental status History of Present Illness 22 y/o male with history of drug abuse who presents after being found unresponsive by his father. He recently got out of rehab. By report he overdosed on methamphetamine and heroin. He had respiratory arrest and was given naloxone and CPR was done when EMS arrived he had a pulse. In the ED he was agitated. He recieved a total of 5 mg of haloperidol, 4 mg of lorazepam, 50 mg of diphenhydramine. He was hypothermic and found to have infiltrates on CXR and given piperacillin-tazobactam Allergies Allergy/AdvReac Type Severity Reaction Status Date / Time No Known Allergies Allergy Unverified 03/05/17 18:45 Home Medications Home Medications Medication Instructions Recorded Confirmed Type Unobtainable 08/28/18 08/28/18 History Patient History Medical History Drug abuse (Acute) Pulmonary contusion (Resolved) Social History Preferred Language: Lithuanian Histologist Required: No Beliefs That Will Affect Care: None Current Living Situation: Parent Feels Safe at Home: Declines to Answer Smoking Status: Current every day smoker Hx Substance Use: Yes Review of Systems unable to obtain with mental status Physical Exam Vital Signs (Past 24 Hours): Last Vital Signs Temp 32.8 C L 08/28/18 14:52 Pulse 108 H 08/28/18 18:08 Resp 22 08/28/18 18:08 BP 108/73 08/28/18 18:08 Pulse Ox 98 08/28/18 18:44 Physical Exam: Constitutional: Comfortable NAD restrained x 4 HEENT: normocephalic atraumatic. MMM. no cervical lymphadenopathy CV: tachycarda nl s1,s2 no murmurs rubs or gallops Lungs: clear to auscultation bilaterally. no accessory muscle use Abd: soft nontender nondistended. normal bowel sounds Ext: no edema. no cyanosis, no clubbing Skin: warm dry multiple glass to arms and legs Neuro: lethargic. moving all extremities Psych: lethargic Results & Data Laboratory Results Laboratory Results - last 24 hr 08/28/18 08/28/18 08/28/18 14:55 14:55 14:55 WBC RBC Hgb POC Hgb Hct POC Hct MCV MCH MCHC RDW Std Deviation RDW Coeff of He Plt Count MPV Immature Gran % (Auto) Neut % (Auto) Lymph % (Auto) [place] % (Auto) Eos % (Auto) Baso % (Auto) Immature Gran # (Auto) Neut # (Auto) Lymph # (Auto) [place] # (Auto) Eos # (Auto) Baso # (Auto) PT 12.9 H INR 1.3 H POC pH POC pCO2 POC pO2 POC HCO3 POC Total CO2 POC Base Excess POC ABG O2 Sat POC Sodium Sodium POC Potassium Potassium Chloride Carbon Dioxide Anion Gap BUN Creatinine Est Cr Clr Drug Dosing Est GFR ( Amer) Est GFR (Non-Af Amer) BUN/Creatinine Ratio Glucose Lactate Calcium Magnesium Total Bilirubin AST ALT Alkaline Phosphatase Total Creatine Kinase Troponin I Total Protein Albumin Globulin Albumin/Globulin Ratio Salicylates < 1.7 L Urine Opiates Screen Ur Methadone, Qual Acetaminophen < 2 L Urine Barbiturates Ur Phencyclidine (PCP) U Amphetamin/Meth Scrn MDMA (Ecstasy) Screen U Benzodiazepines Scrn Ur Cocaine Metabolite U Marijuana (THC) Screen Ethyl Alcohol mg/dL < 3.0 08/28/18 08/28/18 08/28/18 14:55 14:55 15:10 WBC 21.00 H RBC 5.32 Hgb 17.4 POC Hgb Hct 49.6 POC Hct MCV 93.2 MCH 32.7 MCHC 35.1 RDW Std Deviation 42.7 RDW Coeff of He 12.5 Plt Count 423 H MPV 9.1 Immature Gran % (Auto) 0.9 Neut % (Auto) 82.6 Lymph % (Auto) 13.3 [place]haw % (Auto) 3.0 Eos % (Auto) 0.1 Baso % (Auto) 0.1 Immature Gran # (Auto) 0.18 H Neut # (Auto) 17.35 H Lymph # (Auto) 2.80 [place]haw # (Auto) 0.63 H Eos # (Auto) 0.02 Baso # (Auto) 0.02 PT INR POC pH POC pCO2 POC pO2 POC HCO3 POC Total CO2 POC Base Excess POC ABG O2 Sat POC Sodium Sodium 140 POC Potassium Potassium 4.9 Chloride 100 Carbon Dioxide 24 Anion Gap 16.0 H BUN 36 H Creatinine 2.33 H Est Cr Clr Drug Dosing 37.7 Est GFR ( Amer) 44.0 Est GFR (Non-Af Amer) 38.0 BUN/Creatinine Ratio 15.5 Glucose 143 H Lactate Calcium 8.6 Magnesium 3.4 H Total Bilirubin 0.9 AST 303 H ALT 275 H Alkaline Phosphatase 111 Total Creatine Kinase 849 H Troponin I 0.070 H* Total Protein 8.4 H Albumin 4.3 Globulin 4.1 H Albumin/Globulin Ratio 1.0 Salicylates Urine Opiates Screen Pos H Ur Methadone, Qual Neg Acetaminophen Urine Barbiturates Neg Ur Phencyclidine (PCP) Neg U Amphetamin/Meth Scrn Pos H MDMA (Ecstasy) Screen Pos H U Benzodiazepines Scrn Neg Ur Cocaine Metabolite Neg U Marijuana (THC) Screen Pos H Ethyl Alcohol mg/dL 08/28/18 08/28/18 08/28/18 15:37 15:54 16:59 WBC RBC Hgb POC Hgb 14.3 Hct POC Hct 42 MCV MCH MCHC RDW Std Deviation RDW Coeff of He Plt Count MPV Immature Gran % (Auto) Neut % (Auto) Lymph % (Auto) [place] % (Auto) Eos % (Auto) Baso % (Auto) Immature Gran # (Auto) Neut # (Auto) Lymph # (Auto) [place] # (Auto) Eos # (Auto) Baso # (Auto) PT INR POC pH 7.16 L* 7.22 L POC pCO2 62 H 42 POC pO2 < 32 L 56 L POC HCO3 22 17 L POC Total CO2 24 19 L POC Base Excess -7.0 -10.0 L POC ABG O2 Sat 83.0 L POC Sodium 137 Sodium POC Potassium 4.6 Potassium Chloride Carbon Dioxide Anion Gap BUN Creatinine Est Cr Clr Drug Dosing Est GFR ( Amer) Est GFR (Non-Af Amer) BUN/Creatinine Ratio Glucose Lactate 3.1 H* Calcium Magnesium Total Bilirubin AST ALT Alkaline Phosphatase Total Creatine Kinase Troponin I Total Protein Albumin Globulin Albumin/Globulin Ratio Salicylates Urine Opiates Screen Ur Methadone, Qual Acetaminophen Urine Barbiturates Ur Phencyclidine (PCP) U Amphetamin/Meth Scrn MDMA (Ecstasy) Screen U Benzodiazepines Scrn Ur Cocaine Metabolite U Marijuana (THC) Screen Ethyl Alcohol mg/dL Diagnostic Findings XR chest 1V portable HISTORY: 22 years-old Male AMS acutely altered mental status COMPARISON: Chest and rib radiographs 04/10/2017 TECHNIQUE: Portable AP view of the chest FINDINGS: Hazy perihilar opacities are noted throughout the left lung in a perihilar predominant distribution. Additional ill-defined opacities are noted about the right suprahilar lung and right lung apex. Bones appear intact. No opaque foreign body. IMPRESSION: Asymmetric opacities throughout the left lung within a perihilar predominant distribution and also within the right lung apex are suspicious for multifocal pneumonia in the appropriate clinical setting. The above report was generated using voice recognition software. It may contain grammatical, syntax or spelling errors. Electronically signed by: Jose Roe M.D. 08/28/2018 4:[address] head/brain wo con CLINICAL HISTORY: 22 years-old Male with AMS. Acutely altered mental status with drug abuse TECHNIQUE: Multiple axial CT images of the head were obtained without contrast. A dose lowering technique was utilized adhering to the principles of ALARA. CT DOSE: 537.48 mGy.cm COMPARISON: CT head 11/05/2016 FINDINGS: No acute intracranial hemorrhage, midline shift, intracranial mass, hydrocephalus, territorial ischemia or abnormal extra-axial collection. The calvarium is intact. The paranasal sinuses, mastoid air cells, and middle ear cavities are clear. IMPRESSION: No acute intracranial abnormality. The above report was generated using voice recognition software. It may contain grammatical, syntax or spelling errors. Electronically signed by: Jose Roe M.D. 08/28/2018 4:12 PM (1) Drug overdose Encounter type: initial encounter Injury intent: undetermined intent Qualified Code(s): T50.904A - Poisoning by unspecified drugs, medicaments and biological substances, undetermined, initial encounter
--- NOTE | 2018-08-28 18:50 | History & Physical Report ---
Date of Service August 28, 2018 Assessment & Plan (1) Drug overdose: 22 year old man with altered mental status 2/2 opiate overdose and respiratory arrest Opiate Overdose * No history from patient or family * No evidence for intentional harm * Tox screen positive for both opiates and methamphetamine * Patient with GCS9 and protecting airway. On oxymask * Admit to ICU with supportive care and narcan PRN for monitoring * Will not be able to assess hypoxic brain injury until patient is no longer inebriated and see if he returns to baseline. Opacities on chest XR * Pneumonia vs aspiration pneumonitis * Switched zosyn to unasyn * Will continue to monitor clinical status Elevated Troponin * 0.07 * Likely secondary to either CPR, lack of perfusion, or vasospasm * Trending troponins ELevated LFT's * AST 303 ALT 275 Alk Phos WNL * INR elevated at 1.3 * Could be beginning of shock liver, could be chronic liver disease (at risk for hepatitis), could be dehydration and normal variation per critical care. * Trending LFT's F/E/N 1/2NSS with 20 mEq of potassium. NPO DIspo: ICU (2) Altered mental status: (3) Aspiration pneumonia: (4) Respiratory arrest: History of Present Illness Chief Complaint: Opiate Drug Overdose with respiratory Arrest Primary Care Provider: NO PCP Patient unable to provide any history of his own due to altered mental status. No parents present at bedside. Per medical personnel who did speak with parents: Patient is a known IV drug user who had recently finished a 30 day stay in alf and a 30 day stay in rehab. He began using again and his drugs of choice are heroine mixed with methamphetamine. Patient was found down by his father who reported that he was in respiratory arrest and that a needle was found next to him on the ground. Patient was given narcan by police superintendent and when EMS arrived he was found to still be in respiratory arrest and CPR was initiated. He began breathing spontaneously en route to ER. In ER was thrashing and unresponsive, given haldol, ativan, and Benadryl. Patient found to have an elevated white count of 21, an elevated troponin of .07, acidemia with a pH of 3.22 and a PaCO2 of 42. Head CT showing no acute intracranial process, Chest XR showing possible aspiration. 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 Restraints in place ENMT: Sores on face around mouth Respiratory: + tachypneic; + not able to speak in complete sentence Auscultation: lungs clear to auscultation bilaterally Extremely difficult auscultation as patient is thrashing and making noise knocking against bed Cardiovascular: Rate/Rhythm: regular rhythm and + tachycardic Heart Sounds: no click, no gallop, no murmur and no cardiac rub Gastrointestinal (Abdomen): Inspection/Auscultation: abdomen normal to inspection; abdomen not distended and no abdominal surgical scar Percussion/Palpation: + guarding Skin: + lesion (open sores on face) Neurologic: Comatose Patient: corneal reflex present, no decerebrate rigidity, no decorticate rigidity and response to noxious stimuli present GCS of 9 unable to follow instructions, localized to pain. No speech Results & Data ECG Indication: toxicologic Rhythm: sinus rhythm Findings: + prolonged QT Comparison ECG Date: no prior available Code Status & VTE Plan VTE Prophylaxis Plan VTE Prophylaxis will be ordered: Yes Critical Care Time Critical Care Time: No Supervising Physician Co-Signing Physician Notes I personally examined the patient and verified all landis points of history and exam, discussed case, and agree with decision making with Dr Garrett. No meaningful HPI or review of systems obtainable from patient, family not pr esent. Vitals are noted, he is laying in bed in restraints jerking and pulling without much meaningful movement. He does seem to stop drinking and pulling whenever I check his pupils. HEENT normocephalic atraumatic mucous membranes are moist he does have some acne on his face. His pupils are a little bit on the small side at approximately 2 mm and are sluggishly reactive but do react. Lungs are slightly coarse but overall relatively clear without any notable rales or wheezes, the coarseness is more of a scattered rhonchorous type sound. Abdomen soft nondistended nontender no masses or organomegaly. Extremities show no cyanosis clubbing or edema. Neuro is obviously quite difficult to assess, but he seems to have equal strength and muscle tone and no notable facial neuro deficits. Polysubstance overdosesee drug screen, suspect MDMA is a false positive, reportedly was heroin and methamphetamine. Supportive care, monitor closely for airway protection, low threshold for assisted breathing should he worsen. Follow labs and vitals closely, with him having been down for an uncertain period of time, of course there is concern for downstream effects such as an anoxic brain injury, or other watershed ischemia to organs. At this point supportive care and monitoring, as he now has good oxygenation and perfusion. Otherwise as above Resident Activity Tracking Resident Involvement: Resident Care Provided Care Provided: Adult Hospital Medicine (1) Drug overdose Encounter type: initial encounter Injury intent: undetermined intent Qualified Code(s): T50.904A - Poisoning by unspecified drugs, medicaments and biological substances, undetermined, initial encounter (2) Aspiration pneumonia Aspiration pneumonia type: unspecified Laterality: bilateral Lung location: unspecified part of lung Qualified Code(s): J69.0 - Pneumonitis due to inhalation of food and vomit (3) Altered mental status Altered mental status type: unspecified Qualified Code(s): R41.82 - Altered mental status, unspecified
[2018-08-28] MEDS ORDERED: LACTATED RINGER'S 1,000 ML IV ONE (20:00)
[2018-08-28] MEDS: LACTATED RINGER'S 1,000 ML IV SCH (21:20)
[2018-08-28 21:48] LABS: Albumin Globulin Ratio 1.1 (0.9-2); Albumin Level 3.4 gm/dl (3.4-5.0); BUN Creatinine Ratio 22.3 (10-20); Bilirubin,Total 0.8 mg/dl (0.2-1); Calcium 7.4 mg/dl (8.5-10.1); Creatinine Clr Calc Pharmacy 70.4 ml/min; Est GFR (African American) 80.1; Est GFR (Non-African American) 69.1; Globulin 3.2 gm/dl (2.5-4.0); Potassium 5.2 mmol/L (3.5-5.1); Total Protein 6.6 gm/dl (6.4-8.2)
[2018-08-28 21:49] LABS: Troponin I 0.213 ng/ml (0-0.045)
[2018-08-28] MEDS: AMPICILLIN/SULBACTAM SOD 1,500 MG in 0.9 % SODIUM CHLORIDE 100 ML IV SCH (22:01)
[2018-08-29 02:59] LABS: Hematocrit (blood only) 42.5 % (42-52); Hemoglobin 15.1 g/dL (14.0-18.0); Immature Granulocytes # (auto) 0.06 K/uL (0.00-0.02); Immature Granulocytes % (auto) 0.4 %; Lymphocytes # (auto) 1.66 K/uL (1.2-3.4); Lymphocytes % (auto) 9.7 %; Mean Corpuscular Hgb Conc 35.5 g/dL (32-36); Mean Corpuscular Volume 89.9 fL (80-100); Mean Platelet Volume 8.7 fL (7.4-10.4); Monocytes # (auto) 1.48 K/uL (0.11-0.59); Monocytes % (auto) 8.7 %; Neutrophils # (auto) 13.87 K/uL (1.4-6.5); Neutrophils % (auto) 81.2 %; Platelet Count 280 K/uL (130-400); RDW Coefficient of Variation 12.4 % (11.5-14.5); RDW Standard Deviation 40.3 fL (36.4-46.3); Red Blood Count 4.73 M/uL (4.7-6.1); White Blood Count 17.07 K/uL (4.8-10.8)
[2018-08-29 03:09] LABS: INR 1.3 (0.9-1.1); Partial Thromboplastin Time 26.4 Seconds (21.0-31.0); Prothrombin Time 13.2 Seconds (9.0-12.0)
[2018-08-29 03:17] LABS: Albumin Level 3.3 gm/dl (3.4-5.0); Bilirubin Direct 0.2 mg/dl (0-0.2); Calcium 7.5 mg/dl (8.5-10.1); Creatinine Clr Calc Pharmacy 87.7 ml/min; Est GFR (African American) 104.5; Est GFR (Non-African American) 90.1; Potassium 4.5 mmol/L (3.5-5.1)
[2018-08-29] MEDS: LACTATED RINGER'S 1,000 ML IV SCH ×3 (04:02→18:31)
[2018-08-29] MEDS: AMPICILLIN/SULBACTAM SOD 1,500 MG in 0.9 % SODIUM CHLORIDE 100 ML IV SCH (04:02)
[2018-08-29 04:08] LABS: Bilirubin,Total 0.7 mg/dl (0.2-1); Phosphorus 5.7 mg/dl (2.5-4.9); Total Protein 6.4 gm/dl (6.4-8.2); Troponin I 0.257 ng/ml (0-0.045)
[2018-08-29] MEDS ORDERED: INFLUENZA VIRUS QUAD VACCINE 0.5 ML SYR IM ONE (08:45)
[2018-08-29] MEDS ORDERED: INFLUENZA ADMINISTRATION CHARGE ONE (08:45)
--- NOTE | 2018-08-29 08:58 | Critical Care Progress Note ---
Date of Service August 29, 2018 Assessment & Plan (1) Drug overdose: Neuro- altered mental status due to toxic metabolic encephalopathy due to drug overdose. nothing in history to suggest intentional overdose CV- HD stable. lactic acidosis improved. trop up likely due to CPR, renal failure and elevated CK. doubt primary cardiac disease Pulmonary- protecting airway for now. sat well on RA. respiratory arrest at home doubt cardiac arrest ID- infiltrate L lung likely pneumonitis as now on RA. will stop abx Renal- acute renal failure likely prerenal continue fluids. improved. CK elevated -rhabdo GI- NPO for now until more awake Heme- leukocytosis. enoxaparin proph Endocrine- keep blood sugar <180 Dispo- can likely transfer to floor later today Subjective remains unresponsive Physical Exam Vital Signs (Past 24 Hours): Last Vital Signs Temp 36.9 C 08/28/18 19:00 Pulse 106 H 08/29/18 06:01 Resp 14 08/28/18 22:00 BP 123/71 08/29/18 06:01 Pulse Ox 93 08/29/18 06:01 Physical Exam: Constitutional: Comfortable NAD protecting airway on room air HEENT: normocephalic atraumatic. MMM. no cervical lymphadenopathy CV: tachycarda nl s1,s2 no murmurs rubs or gallops Lungs: clear to auscultation bilaterally. no accessory muscle use Abd: soft nontender nondistended. normal bowel sounds Ext: no edema. no cyanosis, no clubbing Skin: warm dry multiple glass to arms and legs Neuro: lethargic. moving all extremities Psych: lethargic (1) Drug overdose Encounter type: initial encounter Injury intent: undetermined intent Qualified Code(s): T50.904A - Poisoning by unspecified drugs, medicaments and biological substances, undetermined, initial encounter
[2018-08-29] MEDS: ENOXAPARIN INJ 40 MG/0.4 ML SYR SQ SCH (09:35)
--- NOTE | 2018-08-29 13:37 | Family Medicine Progress Note ---
Date of Service August 29, 2018 Assessment & Plan (1) Drug overdose: 22 year old man with altered mental status 2/2 opiate overdose and respiratory arrest Opiate Overdose * No history from patient or family * No evidence for intentional harm * Tox screen positive for both opiates and amphetamine * Patient with GCS up to 11 with clear speech and protecting airway. * On room air, no further need for ICU stepped down to PCU. * Patient still altered will continue to reassess for any hypoxic brain injury Opacities on chest XR * Likely Pneumonitis * Antibiotics D/C in ICU by Dr. Alvarez * Respiratory status improving Elevated Troponin * Continued to trend up over night * Likely secondary to either CPR, lack of perfusion, or vasospasm * Likely no need for cardiac intervention, very unlikely caused by CAD ELevated LFT's * AST 443 ALT 318 No evidence for shocked liver, just a mild rise from yesterday F/E/N 150 ml Lactated Ringers NPO DIspo: ICU DVT PPX: lovenox (2) Altered mental status: (3) Aspiration pneumonia: (4) Respiratory arrest: Supervising Physician Co-Signing Physician Notes I personally examined the patient and verified all landis points of history and exam, discussed case, and agree with decision making with Dr Garrett. Still no meaningful HPI or review of systems. He does respond to a sternal rub, and speaks "don't do that again" ICU input appreciated Vitals noted, in general he is sleeping but wakes up to sternal rub as above. He appears in no distress no respiratory distress. Breathing is unlabored lungs are clear without rales rhonchi or wheezes. Cardio is regular without rubs murmurs or gallops. Polysubstance overdoseseems to be improving, certainly a little bit worrisome that he has not woken up more yet, ongoing neuro checks and serial exams. Suppo rtive care, otherwise as above. Subjective Patient not able to communicate, no family at bedside. Was able to say "Don't do that" to Dr. Hauser's sternal rub otherwise did not speak. Review of Systems Unobtainable due to reduced consciousness Physical Exam Vital Signs (Past 24 Hours): Last Vital Signs Temp 36.9 C 08/28/18 19:00 Pulse 103 H 08/29/18 12:30 Resp 14 08/28/18 22:00 BP 117/69 08/29/18 12:01 Pulse Ox 94 08/29/18 12:30 Constitutional: Somnolent, in restraints Respiratory: + not able to speak in complete sentence Auscultation: lungs clear to auscultation bilaterally Cardiovascular: Rate/Rhythm: regular rhythm and + tachycardic Heart Sounds: no click, no gallop, no murmur and no cardiac rub Gastrointestinal (Abdomen): Inspection/Auscultation: abdomen normal to inspection; abdomen not distended and no abdominal surgical scar Percussion/Palpation: abdomen soft Skin: + lesion (open sores on face) Neurologic: Comatose Patient: no decerebrate rigidity and no decorticate rigidity pupils miotic ;equal round and reactive to light bilaterally Resident Activity Tracking Resident Involvement: Resident Care Provided Care Provided: Adult Hospital Medicine (1) Drug overdose Encounter type: initial encounter Injury intent: undetermined intent Qualified Code(s): T50.904A - Poisoning by unspecified drugs, medicaments and biological substances, undetermined, initial encounter (2) Aspiration pneumonia Aspiration pneumonia type: unspecified Laterality: bilateral Lung location: unspecified part of lung Qualified Code(s): J69.0 - Pneumonitis due to inhalation of food and vomit (3) Altered mental status Altered mental status type: unspecified Qualified Code(s): R41.82 - Altered mental status, unspecified
[2018-08-30] MEDS: LACTATED RINGER'S 1,000 ML IV SCH ×2 (00:17→06:49)
[2018-08-30 06:46] LABS: Basophils # (auto) 0.01 K/uL (0-0.2); Basophils % (auto) 0.1 %; Eosinophils % (auto) 1.1 %; Hematocrit (blood only) 37.5 % (42-52); Hemoglobin 13.5 g/dL (14.0-18.0); Immature Granulocytes # (auto) 0.03 K/uL (0.00-0.02); Immature Granulocytes % (auto) 0.3 %; Lymphocytes # (auto) 2.18 K/uL (1.2-3.4); Lymphocytes % (auto) 24.1 %; Mean Corpuscular Volume 89.9 fL (80-100); Mean Platelet Volume 9.1 fL (7.4-10.4); Monocytes # (auto) 0.87 K/uL (0.11-0.59); Monocytes % (auto) 9.6 %; Neutrophils # (auto) 5.85 K/uL (1.4-6.5); Neutrophils % (auto) 64.8 %; Platelet Count 242 K/uL (130-400); RDW Coefficient of Variation 12.3 % (11.5-14.5); RDW Standard Deviation 40.6 fL (36.4-46.3); Red Blood Count 4.17 M/uL (4.7-6.1); White Blood Count 9.04 K/uL (4.8-10.8)
[2018-08-30 06:56] LABS: INR 1.2 (0.9-1.1); Partial Thromboplastin Time 27.3 Seconds (21.0-31.0)
[2018-08-30 07:03] LABS: Alanine Aminotransferase 208 U/L (12-78); Albumin Level 2.8 gm/dl (3.4-5.0); Aspartate Aminotransferase 228 U/L (15-37); BUN Creatinine Ratio 14.6 (10-20); Bilirubin Direct 0.2 mg/dl (0-0.2); Blood Urea Nitrogen 8 mg/dl (7-18); Carbon Dioxide 26 mmol/L (21-32); Chloride 105 mmol/L (98-107); Creatinine Clr Calc Pharmacy 181.7 ml/min; Est GFR (African American) > 150.0; Est GFR (Non-African American) 146.9; Glucose 71 mg/dl (70-99); Potassium 3.7 mmol/L (3.5-5.1); Sodium 139 mmol/L (136-145)
[2018-08-30 07:07] LABS: Alkaline Phosphatase 54 U/L (45-117); Bilirubin,Total 0.8 mg/dl (0.2-1); Phosphorus 1.7 mg/dl (2.5-4.9); Total Protein 5.7 gm/dl (6.4-8.2)
--- NOTE | 2018-08-30 10:02 | Hospitalist Progress Note ---
Date of Service August 30, 2018 Assessment & Plan (1) Drug overdose: Now recovered. Advance diet. Follow closely, but safe to move to [facility]. Surprisingly appears to have not suffered any clear downstream ischemia from his time down. (2) Drug addiction: Extensive discussions with patient and family. Will ask for information for methadone and Suboxone clinics, and the father asks about a possible referral for evaluation for medical marijuana, which seems reasonable given the limited means we have to stabilize addiction, and this particular patient's high risk for significant complications (3) Altered mental status: Now resolved (4) Aspiration pneumonia: Fortunately appears to have been a pneumonitis which is now resolved, he is off of antibiotics. (5) Hypothermia: Resolved (6) Respiratory arrest: Resolved see above (7) DVT prophylaxis: Was on Lovenox, now will stop given that he will be ambulatory (8) Discharge planning issues: transfer to [facility], regular diet/ambulation -hopefully home tomorrow. referrals as above (9) Transaminitis: ?a degree of shock liver from time down vs toxic mediated transaminits from substance abuse, vs ?hepatitis from IVDA (check hepatitis panel, trend enzymes periodically) (10) ARF (acute renal failure): almost certainly hypoperfusion from time down. now resolved. Subjective Extensive discussions with patient, father, mother. AKILAH is now awake and alert, he really does not remember much of anything that happened at all. He seems loosely aware that he and was resuscitated, but it seems to have no significant emotional impact. He is appreciative of care and does seem to be happy to be awake and alert, but the gravity of the situation seems to be fairly lost on him. We have extensive discussions with him, with the father, and with the mother (all in his presence) about the difficulties of managing addictions especially things like heroin and methamphetamine. He has no notable neuro deficits, he seems to be acting like his normal self both to him and to his family, he would like to eat. Review of Systems All systems reviewed & are unremarkable except as noted in HPI & below Physical Exam Vital Signs (Past 24 Hours): Last Vital Signs Temp 36.5 C 08/30/18 07:08 Pulse 89 08/30/18 07:08 Resp 16 08/30/18 07:08 BP 131/74 08/30/18 07:08 Pulse Ox 98 08/30/18 07:08 Physical Exam: In general he is fatigued but awakens easily he is oriented x3 and is in no distress. HEENT normal cephalic atraumatic mucous membranes moist. Breathing is unlabored no accessory muscle use good effort. Skin shows no rashes no pallor or icterus. Neuro exam shows no focal deficits whatsoever. His mental status outside of poor recent recall for the events during his overdose and him down shows overall good recent and remote recall paradoxically good and poor judgment and insight simultaneously as is often the case with people struggling with addictions, and a surprisingly normal mood and affect. (1) Hypothermia Encounter type: initial encounter Qualified Code(s): T68.XXXA - Hypothermia, initial encounter (2) Drug overdose Encounter type: initial encounter Injury intent: undetermined intent Qualified Code(s): T50.904A - Poisoning by unspecified drugs, medicaments and biological substances, undetermined, initial encounter (3) Aspiration pneumonia Aspiration pneumonia type: unspecified Laterality: bilateral Lung location: unspecified part of lung Qualified Code(s): J69.0 - Pneumonitis due to inhalation of food and vomit (4) Altered mental status Altered mental status type: unspecified Qualified Code(s): R41.82 - Altered mental status, unspecified
[2018-08-30 10:32] LABS: Hepatitis B Surface Antigen Neg (Neg)
[2018-08-30] MEDS: ENOXAPARIN INJ 40 MG/0.4 ML SYR SQ SCH (11:06)
[2018-08-30] MEDS ORDERED: ACETAMINOPHEN 65 ML IV ONE (22:45)
[2018-08-30] MEDS ORDERED: ACETAMINOPHEN 325 MG TAB PO PRN (22:52)
[2018-08-30] MEDS ORDERED: ACETAMINOPHEN 325 MG TAB ONE (22:58)
[2018-08-31 06:27] LABS: Alanine Aminotransferase 174 U/L (12-78); Albumin Level 3.1 gm/dl (3.4-5.0); Aspartate Aminotransferase 159 U/L (15-37); BUN Creatinine Ratio 9.9 (10-20); Blood Urea Nitrogen 7 mg/dl (7-18); Calcium 8.4 mg/dl (8.5-10.1); Carbon Dioxide 28 mmol/L (21-32); Chloride 107 mmol/L (98-107); Creatinine Clr Calc Pharmacy 138.8 ml/min; Est GFR (African American) > 150.0; Est GFR (Non-African American) 131.5; Glucose 107 mg/dl (70-99); Potassium 3.8 mmol/L (3.5-5.1); Sodium 141 mmol/L (136-145)
[2018-08-31 06:29] LABS: Albumin Globulin Ratio 0.9 (0.9-2); Alkaline Phosphatase 61 U/L (45-117); Bilirubin,Total 0.5 mg/dl (0.2-1); Globulin 3.4 gm/dl (2.5-4.0); Total Protein 6.5 gm/dl (6.4-8.2)
--- NOTE | 2018-08-31 12:58 | Discharge Summary ---
Date of Service August 31, 2018 Admission HPI Per Admitting Provider Patient unable to provide any history of his own due to altered mental status. No parents present at bedside. Per medical personnel who did speak with parents: Patient is a known IV drug user who had recently finished a 30 day stay in [facility] and a 30 day stay in rehab. He began using again and his drugs of choice are heroine mixed with methamphetamine. Patient was found down by his father who reported that he was in respiratory arrest and that a needle was found next to him on the ground. Patient was [place] narcan by [place] police officer and when EMS arrived he was found to still be in respiratory arrest and CPR was initiated. He began breathing spontaneously en route to ER. In ER was thrashing and unresponsive, given haldol, ativan, and Benadryl. Patient found to have an elevated white count of 21, an elevated troponin of .07, acidemia with a pH of 3.22 and a PaCO2 of 42. Head CT showing no acute intracranial process, Chest XR showing possible aspiration. Admission Exam Per Admitting Provider Temp 32.8 C L 08/28/18 14:52 Pulse 108 H 08/28/18 18:08 Resp 22 08/28/18 18:08 BP 108/73 08/28/18 18:08 Pulse Ox 98 08/28/18 18:44 Constitutional: + in distress and + combative Thrashing about in bed. Restraints in place ENMT: Sores on face around mouth Respiratory: + tachypneic; + not able to speak in complete sentence Auscultation: lungs clear to auscultation bilaterally Extremely difficult auscultation as patient is thrashing and making noise knocking against bed Cardiovascular: Rate/Rhythm: regular rhythm and + tachycardic Heart Sounds: no click, no gallop, no murmur and no cardiac rub Gastrointestinal (Abdomen): Inspection/Auscultation: abdomen normal to inspection; abdomen not distended and no abdominal surgical scar Percussion/Palpation: + guarding Skin: + lesion (open sores on face) Neurologic: Comatose Patient: corneal reflex present, no decerebrate rigidity, no decorticate rigidity and response to noxious stimuli present GCS of 9 unable to follow instructions, localized to pain. No speech Principal Diagnosis Opiate overdose Discharge Exam Constitutional well developed, well nourished, + well hydrated, cooperative and comfortable; no acute distress Eyes PERRL, conjunctivae normal, anicteric sclerae ENMT external ear and nose normal, oropharynx normal Respiratory normal respiratory effort, lungs clear to auscultation able to speak in complete sentences; no respiratory distress, no labored breathing and no cough Cardiovascular RRR, no murmur, no edema Rate/Rhythm: regular rhythm Gastrointestinal (Abdomen) Inspection/Auscultation: abdomen normal to inspection; abdomen not distended and no abdominal surgical scar Percussion/Palpation: abdomen soft Discharge Data Allergies Allergy/AdvReac Type Severity Reaction Status Date / Time No Known Allergies Allergy Unverified 03/05/17 18:45 Consultations 08/28/18 16:29 ED Decision to Admit Stat 08/28/18 17:15 Consult Case Management - Discharge Planning Routine 08/28/18 17:16 Consult Tin Tie Machine Operator Automatic Routine 08/30/18 09:19 Consult Case Management - Discharge Planning Routine 08/31/18 09:17 Consult [facility] stockroom selector Routine Ordered Studies 08/28/18 14:49 CT head/brain wo con Stat Hospital Course (1) Drug overdose: 22 year old man with altered mental status 2/2 opiate overdose and respiratory arrest Opiate Overdose * No evidence for intentional harm, found down by his father. * Tox screen positive for both opiates and amphetamine * Initially with GCS of 9 but protecting airway; due to resp arrest and respiratory acidosis described above, there was concern for hypoxic brain injury * spent one night in ICU and was moved to floor and made a full recovery * Has been addicted to heroin for about 2 years now, tells me he wants to make a change. * I feel his insight remains supremely limited, but hopefully this is the first step to understanding Opacities on chest XR * Briefly concerned for pneumonia and was placed on antibiotics in ER * Was pneumonitis and held Abx * Respiratory status at baseline on d/c Elevated Troponin * Elevated on admission at .07, trended up to .257 overnight, likely secondary to either his respiratory acidosis/ hypoxia vs induced by CPR in field * Unlikely to have any CAD Elevated LFT's * Found to be positive for Hepatitis C (Negative for HIV) * Likely 2/2 IV drug use, will need curative treatment as an outpatient. (2) Altered mental status: (3) Aspiration pneumonia: (4) Respiratory arrest: Total Time Total Time Spent Total Time Spent (In Minutes): >30 Total Time Includes: Examination of the Patient, Discharge Planning and Communication With Other Providers Discharge Plan Discharge Items Patient Disposition: Home - Self-Care Reason For Visit: OPIATE OVERDOSE WITH PROLONGED RESPIRATORY ARREST Discharge Diagnosis: Opiate overdose Discharge Goals: Improve disease control Non-emergency contact: Primary Care Provider Call non-emergency contact if: your symptoms worsen, you have a fever and your temperature is above 101 Follow-up/Referrals: PCP,NO [Primary Care Provider] - Diet: Regular Addtl Provider Instructions: Mr. Alexis, We have treated you for your drug overdose here at [facility]. You came about as close to dying as a man can come and you are fortunate to have made it through without major brain or organ damage. I know you have heard it from us in person, but I cannot emphasize enough how important it is that this be a wake up call to you of the risks of your addiction and that you use this as an opportunity to make a change. You have also tested positive for a disease called hepatitis C. This disease can affect your liver and, if left untreated, can lead liver failure, cirrhosis, and liver cancer. It is curable with treatment and it will be important to follow up as an outpatient and get this disease treated. You are more than welcome to come see me in clinic and I asked our nurse coordinator to set you up for an appointment. Hunter Garrett [address], [place] [address] Prescriptions: No Action Unobtainable RF: 0 Stand-Alone Forms: My [facility] Krames/Other Patient Handouts: Abuse Heroin Abuse and Addiction, Addiction Heroin Tx, ED Overdose Opiate Discharge Orders: Discharge Order (Routine); Ordered 08/31/18 Ordered By: Hunter Garrett Admission Data Admit Date/Time: 08/28/18 17:15 Attending Provider: Uriel Hauser Admit Provider: Hunter Garrett Primary Care Provider: PCP,NO Other Providers: Mariano Morrissey ; Darius Alvarez Service: Medical Other Interventions: Discharge Summary Assessment (RN) Last Done: 08/31/18 09:36 DC Date/Time DO NOT enter until pt leaves facility: 08/31/18 11:02 Supervising Physician Co-Signing Physician Notes I personally examined the patient and verified all landis points of history and exam, discussed case, and agree with decision making with Dr Garrett. feeling better, quite appreciative of care. gave #'s for methadone/suboxone cl inics and then also discussed referral process for evaluation of appropriateness of medical marijuana. reiterated yesterday's discussions on limited science of addiction and best evidence. discussed hep C as well - for now would prioritize getting into replacement therapy and/or medical marijuana if appropriate, then pursue hep C treatment once he's not at risk for reinfection from injections. he expresses appreciation of this approach. to set a timeline, discussed seeing doc who would treat hep C by the end of the year - mostly so that pursuing treatment is not something that "slips through the cracks" vitals noted nad breathing unlabored no pallor or icterus. normal ambulation. no neuro deficits. mood and affect are normal. arrest due to heroin/methadone OD - appears to have made a full recovery despite arrest in the field. stable fo rhome polysubstance abuse/addiction - see yesterday/above discussions. will have him pursue multifactorial approach to care; also discussed avoidance of friends who are active users and of having parents know his whereabouts to help keep him accountable, and hopefully at least a measure safer PCP f/u in near future, discussed following up regularly/frequently stable for home Resident Activity Tracking Resident Involvement: Resident Care Provided Care Provided: Adult Hospital Medicine
[2018-09-02 15:48] LABS: Amphetamine Urine, Confirm 6910 NG/ML (CUTOF=250); Hydrocodone Urine NEGATIVE NG/ML (CUTOFF=50); Hydromor Urine NEGATIVE NG/ML (CUTOFF=50); Marijuana Quant, GCMS Urine 68 NG/ML (CUTOFF=5); Morphine Urine 780 NG/ML (CUTOFF=50); Norhydrocodone Conf Ur NEGATIVE NG/ML (CUTOFF=50); Noroxycodone Urine NEGATIVE NG/ML (CUTOFF=50); Oxycodone Urine NEGATIVE NG/ML (CUTOFF=50)
== END 2018-08-31 11:02 | disposition home or self-care (01) | DRG 917 ==
LOC: ED 14:40 → 1E 17:15 → 2E 08-29 12:29 → 2W 08-30 10:30

== ENCOUNTER 2019-05-29 02:11 | Observation (INO) ==
[2019-05-29] MEDS ORDERED: ONDANSETRON INJ 2 MG/ML 2 ML VIAL IV STA (02:42)
[2019-05-29] MEDS ORDERED: MoRPHine SULFATE 4 MG/ML 1 ML CARP\\VIAL IV STA ×3 (02:42→07:11)
[2019-05-29] MEDS ORDERED: SODIUM CHLORIDE 0.9% 1000ML 1,000 ML IV SCH ×2 (02:45→09:33)
[2019-05-29 03:03] LABS: Basophils # (auto) 0.01 K/uL (0-0.2); Basophils % (auto) 0.1 %; Eosinophils # (auto) 0.01 K/uL (0-0.5); Eosinophils % (auto) 0.1 %; Hematocrit (blood only) 45.4 % (42-52); Hemoglobin 16.2 g/dL (14.0-18.0); Immature Granulocytes # (auto) 0.04 K/uL (0.00-0.02); Immature Granulocytes % (auto) 0.2 %; Lymphocytes % (auto) 11.2 %; Mean Corpuscular Hgb Conc 35.7 g/dL (32-36); Mean Corpuscular Volume 89.5 fL (80-100); Mean Platelet Volume 8.9 fL (7.4-10.4); Monocytes # (auto) 1.58 K/uL (0.11-0.59); Monocytes % (auto) 9.8 %; Neutrophils # (auto) 12.64 K/uL (1.4-6.5); Neutrophils % (auto) 78.6 %; Platelet Count 324 K/uL (130-400); RDW Coefficient of Variation 12.4 % (11.5-14.5); RDW Standard Deviation 39.9 fL (36.4-46.3); Red Blood Count 5.07 M/uL (4.7-6.1); White Blood Count 16.08 K/uL (4.8-10.8)
[2019-05-29 03:22] LABS: Albumin Level 4.4 gm/dl (3.4-5.0); BUN Creatinine Ratio 14.8 (10-20); Calcium 9.6 mg/dl (8.5-10.1); Creatinine Clr Calc Pharmacy 115.5 ml/min; Est GFR (African American) 138.7; Est GFR (Non-African American) 119.7; Potassium 3.5 mmol/L (3.5-5.1)
[2019-05-29 03:25] LABS: Albumin Globulin Ratio 1.2 (0.9-2); Bilirubin,Total 1.2 mg/dl (0.2-1); Globulin 3.7 gm/dl (2.5-4.0); Total Protein 8.1 gm/dl (6.4-8.2)
[2019-05-29 04:17] LABS: Appearance Urine Cloudy (Clear); Bilirubin Urine Negative (Negative); Blood Urine Negative (Negative); Color Urine Yellow; Glucose Urine UA Negative (Negative); Ketones Urine Trace (Negative); Leukocyte Esterase Urine Negative (Negative); Nitrite Urine Negative (Negative); Protein Urine Negative (Negative); Specific Gravity Urine 1.004 (1.000-1.030); Urobilinogen Urine Negative (Negative); pH Urine 7.5 (4.5-7.5)
[2019-05-29 04:31] LABS: Bacteria Urine Negative (Negative); Epithelial Cell Urine >30 /lpf (0-5); RBC Urine 0-4 /hpf (0-4); WBC Urine 0-5 /hpf (0-5)
[2019-05-29] MEDS ORDERED: IOVERSOL 100ml IV PRN (05:19)
--- NOTE | 2019-05-29 06:52 | Emergency Department Note ---
History of Present Illness General Chief complaint: Abdominal Pain Stated complaint: ABD PAIN Time Seen by Provider: 05/29/19 02:28 History of Present Illness Maximum Pain Intensity: 6 This is a 23-year-old male presenting to the emergency department for evaluation of right-sided low abdominal pain worsening over the past 7 or 8 hours. The patient states that approximately 8 PM last night he began having some discomfort in the belly after eating. He then had multiple episodes of vom iting. The patient has had slowly increasing pain in the right lower quadrant ever since. He does not have a history of abdominal surgery. No recent travel history. The patient does not take medication on a regular basis. There is no reports of fevers or chills. He rates his discomfort a 6/10 that worsens with certain movement. Home Medications Home Medications Medication Instructions Recorded Confirmed Type No Known Home Medications 05/29/19 05/29/19 History Allergies Allergy/AdvReac Type Severity Reaction Status Date / Time No Known Allergies Allergy Unverified 05/29/19 12:10 Past Med/Surg History Medical History (Updated 05/29/19 @ 21:48 by Wu Wong PA-C) Drug abuse (Acute) Pulmonary contusion (Resolved) Tobacco abuse Social History Preferred Language: Nigerien Communication Ability: Effective Steward/Stewardess Second Required: No Beliefs That Will Affect Care: None Current Living Situation: Parent Other Information That Helps Us Care for You: No Feels Safe at Home: Yes Safety Concerns: Feels Safe At This Time Smoking Status: Former smoker Do You Dip or Chew Tobacco: No ; Second Hand Exposure: No ; Tobacco Cessation Education Requested by Patient: No Hx Alcohol Use: Yes Hx Substance Use: Yes substance use type: other Substance Use Type Other:: history of + toxicology of THC and opiates Last Used Substance: Unknown Review of Systems A total of 10 systems reviewed and were otherwise negative Physical Exam Vital Signs Vital Signs - 24 hr 05/29/19 02:24 05/29/19 04:00 05/29/19 04:21 Temperature 36.6 C Temperature Source Oral Pulse Rate 103 H Pulse Rate [Right Finger] 98 H Respiratory Rate 20 28 H 22 Respiratory Effort / Characteristics Respiratory Depth Shallow Shallow Respiratory Pattern Blood Pressure 133/85 Blood Pressure [Right Arm] 155/90 H Blood Pressure Mean 101 Blood Pressure Mean [Right Arm] 111 Blood Pressure Position Sitting Pulse Oximetry 94 98 98 Oxygen Delivery Method Room Air Room Air Room Air Sepsis Recent Fever Within 48 Hours No Sepsis New/Unexplained Change in Mental Status No Sepsis Action Taken by Nursing No Action Required 05/29/19 05:20 05/29/19 06:02 05/29/19 06:45 Temperature Temperature Source Pulse Rate Pulse Rate [Right Finger] 102 H 98 H 96 H Respiratory Rate 22 24 18 Respiratory Effort / Characteristics Non-Labored Spontaneous Respiratory Depth Normal Shallow Respiratory Pattern Regular Blood Pressure Blood Pressure [Right Arm] 147/84 H 147/84 H Blood Pressure Mean Blood Pressure Mean [Right Arm] 105 105 Blood Pressure Position Pulse Oximetry 98 99 98 Oxygen Delivery Method Room Air Room Air Sepsis Recent Fever Within 48 Hours Sepsis New/Unexplained Change in Mental Status Sepsis Action Taken by Nursing 05/29/19 07:54 Temperature Temperature Source Pulse Rate Pulse Rate [Right Finger] 104 H Respiratory Rate 18 Respiratory Effort / Characteristics Respiratory Depth Respiratory Pattern Blood Pressure Blood Pressure [Right Arm] 130/78 Blood Pressure Mean Blood Pressure Mean [Right Arm] 95 Blood Pressure Position Pulse Oximetry 96 Oxygen Delivery Method Room Air Sepsis Recent Fever Within 48 Hours Sepsis New/Unexplained Change in Mental Status Sepsis Action Taken by Nursing VITALS: Vitals are noted on the nurse's note and reviewed by myself. Vital signs stable. GENERAL: Well-developed, well-nourished, white male who appears moderately uncomfortable on exam. HEAD: Normocephalic atraumatic. EYES: Pupils equal round and reactive to light and accommodation. Conjunctivae without injection, sclerae without icterus. Extraocular movements intact. NOSE: Patent, turbinates without inflammation or discharge. MOUTH: Mucous membranes moist. Tonsils are not enlarged. Pharynx without erythema, blood, or exudate. Uvula midline. Airway patent. NECK: Supple without nuchal rigidity. No lymphadenopathy. No thyromegaly. Cervical spine is nontender. HEART: Regular rate and rhythm without murmurs gallops or rubs. LUNGS: Clear to auscultation bilaterally without wheezes, rales or rhonchi. No retractions or accessory muscle use. ABDOMEN: Positive normal bowel sounds x 4. Soft with distinct right lower quadrant tenderness on palpation. There is rebound tenderness. No guarding. No CVA tenderness. MUSCULOSKELETAL: No muscle atrophy, erythema, or edema noted. Full range of motion in all extremities. NEURO: Patient was alert and oriented to person place and time. CN II through XII grossly intact. SKIN: The skin was without rashes, erythema, edema, or bruising. Capillary refill less than 2 seconds. Course Administered Medications Cefoxitin Sodium 2,000 mg/ (Dextrose) 60 mls @ 100 mls/hr IV Q6H [facility] Stop: 06/08/19 13:59 Last Infusion: 05/29/19 20:54 Dose: 0 mls/hr Documented by: [id number] Admin: 05/29/19 20:18 Dose: 100 mls/hr Documented by: [id number] Admin: 05/29/19 14:48 Dose: Not Given Documented by: [id number] Lactated Ringer's (Lr) 1,000 mls @ 80 mls/hr IV .[id number] [facility] Stop: 06/28/19 14:44 Last Infusion: 05/29/19 20:54 Dose: 80 mls/hr Documented by: [id number] Infusion: 05/29/19 20:18 Dose: 0 mls/hr Documented by: [id number] Admin: 05/29/19 14:40 Dose: 80 mls/hr Documented by: [id number] Morphine Sulfate (Morphine Sulfate) 2 mg IV Q3H PRN PRN Reason: MODERATE PAIN 4,5,6 Stop: 06/12/19 17:52 Last Admin: 05/29/19 17:58 Dose: 2 mg Documented by: [id number] Oxycodone/Acetaminophen (Percocet 5mg/325mg) 2 tab PO Q4H PRN PRN Reason: SEVERE Pain (Scale 7,8,9,10) Stop: 06/12/19 09:32 Last Admin: 05/29/19 20:20 Dose: 2 tab Documented by: [id number] Admin: 05/29/19 15:04 Dose: 2 tab Documented by: [id number] Discontinued Medications Bacitracin (Bacitracin) Confirm Administered Dose 45 appln .ROUTE .STK-MED ONE Stop: 05/29/19 12:39 Last Admin: 05/29/19 13:31 Dose: 45 appln Documented by: [id number] Bupivacaine HCl (Marcaine 0.5% Mpf) Confirm Administered Dose 30 ml .ROUTE .STK- MED ONE Stop: 05/29/19 12:39 Last Admin: 05/29/19 13:31 Dose: 20 ml Documented by: [id number] Sodium Chloride (Nss 1000ml) 1,000 mls @ 999 mls/hr IV .Q1H1M [facility] Stop: 05/29/19 03:45 Last Infusion: 05/29/19 03:56 Dose: 0 mls/hr Documented by: [id number] Admin: 05/29/19 02:52 Dose: 999 mls/hr Documented by: [id number] Cefoxitin Sodium (Mefoxin) 2,000 mg in 60 mls @ 100 mls/hr IV NOW STA Stop: 05/29/19 07:39 Last Infusion: 05/29/19 08:33 Dose: 0 mls/hr Documented by: [id number] Admin: 05/29/19 08:00 Dose: 100 mls/hr Documented by: [id number] Sodium Chloride (Nss 1000ml) 1,000 mls @ 125 mls/hr IV .Q8H [facility] Stop: 06/28/19 09:32 Last Infusion: 05/29/19 15:56 Dose: 0 mls/hr Documented by: [id number] Infusion: 05/29/19 11:57 Dose: 0 mls/hr Documented by: [id number] Admin: 05/29/19 09:58 Dose: 125 mls/hr Documented by: [id number] Ioversol (Optiray 320 100ml) 100 ml IV ONCE PRN PRN Reason: Interaction Checking Stop: 06/02/19 05:18 Last Admin: 05/29/19 05:19 Dose: 92 ml Documented by: [id number] Lidocaine HCl (Xylocaine 1% (Local)) Confirm Administered Dose 20 ml .ROUTE .STK-MED ONE Stop: 05/29/19 12:39 Last Admin: 05/29/19 13:31 Dose: 20 ml Documented by: [id number] Morphine Sulfate (Morphine Sulfate) 4 mg IV NOW STA Stop: 05/29/19 02:43 Last Admin: 05/29/19 02:52 Dose: 4 mg Documented by: [id number] Morphine Sulfate (Morphine Sulfate) 4 mg IV NOW STA Stop: 05/29/19 04:11 Last Admin: 05/29/19 04:14 Dose: 4 mg Documented by: [id number] Morphine Sulfate (Morphine Sulfate) 4 mg IV NOW STA Stop: 05/29/19 07:12 Last Admin: 05/29/19 08:00 Dose: 4 mg Documented by: [id number] Morphine Sulfate (Morphine Sulfate) 4 mg IV Q3H PRN PRN Reason: SEVERE Pain (Scale 7,8,9,10) Stop: 06/12/19 09:32 Last Admin: 05/29/19 11:02 Dose: 4 mg Documented by: [id number] Ondansetron HCl (Zofran) 4 mg IV NOW STA Stop: 05/29/19 02:43 Last Admin: 05/29/19 02:53 Dose: 4 mg Documented by: [id number] Medical Decision Making Differential Diagnosis Differential diagnosis: Etiologies such as biliary colic, cholecystitis, hepatitis, pancreatitis, cardiac disease, pancreatitis, gastritis, peptic ulcer disease, appendicitis, cystitis, diverticulitis, mesenteric ischemia, inflammatory bowel disease, ileus, bowel obstruction, testicular/adnexal torsion, aortic pathology, shingles, as well as others were considered Laboratory Data Result diagrams: 05/29/19 02:55 05/29/19 02:55 Lab Results 05/29/19 05/29/19 05/29/19 Range/Units 02:55 02:55 04:07 WBC 16.08 H (4.8-10.8) K/uL RBC 5.07 (4.7-6.1) M/uL Hgb 16.2 (14.0-18.0) g/dL Hct 45.4 (42-52) % MCV 89.5 (80-100) fL MCH 32.0 (25-34) pg MCHC 35.7 (32-36) g/dL RDW Std Deviation 39.9 (36.4-46.3) fL RDW Coeff of He 12.4 (11.5-14.5) % Plt Count 324 (130-400) K/uL MPV 8.9 (7.4-10.4) fL Immature Gran % (Auto) 0.2 % Neut % (Auto) 78.6 % Lymph % (Auto) 11.2 % [place] % (Auto) 9.8 % Eos % (Auto) 0.1 % Baso % (Auto) 0.1 % Immature Gran # (Auto) 0.04 H (0.00-0.02) K/uL Neut # (Auto) 12.64 H (1.4-6.5) K/uL Lymph # (Auto) 1.80 (1.2-3.4) K/uL [place] # (Auto) 1.58 H (0.11-0.59) K/uL Eos # (Auto) 0.01 (0-0.5) K/uL Baso # (Auto) 0.01 (0-0.2) K/uL Sodium 136 (136-145) mmol/L Potassium 3.5 (3.5-5.1) mmol/L Chloride 103 (98-107) mmol/L Carbon Dioxide 28 (21-32) mmol/L Anion Gap 5.0 (3-11) BUN 13 (7-18) mg/dl Creatinine 0.89 (0.6-1.4) mg/dl Est Cr Clr Drug Dosing 115.5 ml/min Est GFR ( Amer) 138.7 Est GFR (Non-Af Amer) 119.7 BUN/Creatinine Ratio 14.8 (10-20) Glucose 119 H (70-99) mg/dl Calcium 9.6 (8.5-10.1) mg/dl Total Bilirubin 1.2 H (0.2-1) mg/dl AST 45 H (15-37) U/L ALT 70 (12-78) U/L Alkaline Phosphatase 64 (45-117) U/L Total Protein 8.1 (6.4-8.2) gm/dl Albumin 4.4 (3.4-5.0) gm/dl Globulin 3.7 (2.5-4.0) gm/dl Albumin/Globulin Ratio 1.2 (0.9-2) Urine Color Yellow Urine Appearance Cloudy A (Clear) Urine pH 7.5 (4.5-7.5) Ur Specific [place] 1.004 (1.000-1.030) Urine Protein Negative (Negative) Urine Glucose (UA) Negative (Negative) Urine Ketones Trace H (Negative) Urine Blood Negative (Negative) Urine Nitrite Negative (Negative) Urine Bilirubin Negative (Negative) Urine Urobilinogen Negative (Negative) Ur Leukocyte Esterase Negative (Negative) Urine RBC 0-4 (0-4) /hpf Urine WBC 0-5 (0-5) /hpf Ur Epithelial Cells >30 H (0-5) /lpf Urine Bacteria Negative (Negative) Imaging Data Radiologist's Impression: ABDOMEN AND PELVIS CT WITH IV AND ORAL CONTRAST CT DOSE: 287.47 mGy.cm HISTORY: Acute right lower quadrant abdominal pain RLQ abd pain TECHNIQUE: Multiaxial CT images of the abdomen and pelvis were performed followi ng the IV administration of 92 cc of Optiray 320 and oral contrast. A dose lowering technique was utilized adhering to the principles of ALARA. COMPARISON STUDY: Chest CT 07/31/2014. FINDINGS: Lung bases are clear. No pneumatosis or pneumoperitoneum. The imaged inferior cardiac chambers are unremarkable. Unremarkable spleen, pancreas, adrenal glands, gallbladder and liver. Patency of the hepatic and portal veins. Kidneys, ureters, urinary bladder and prostate are unremarkable. Aorta and IVC are unremarkable. No adenopathy. No bowel obstruction. The appendix is dilated and fluid-filled measuring up to 10 mm transversely with circumferential wall thickening and mucosal hyperemia. Patency inflammation with trace reactive free fluid. No evidence of perforation, drainable fluid collection or appendicolith. Soft tissues are unremarkable. Bones of the left femoral head and right iliac crest. 2.9 cm peripherally corticated bone fragment along the lateral aspect of the superior right acetabu lum is suggestive of an os acetabula with mild underlying associated subcortical cystic change. IMPRESSION: 1. Findings compatible with acute uncomplicated appendicitis. No evidence of perforation or rupture. 2. No bowel obstruction. 3. Right os acetabula. MDM Narrative Physical exam and history were performed. Nursing notes, EMR, and Medication List were personally reviewed. Patient appears to have right lower quadrant abdominal pain bringing him to the ER. IV access was established and labs were obtained. He was given IV saline, IV morphine, and IV Zofran. The patient was made n.p.o. He was prepped for CT with IV and oral contrast of the belly. The patient's blood work is as above and was reviewed. He does have an elevated white blood cell count of 16,000. He does not have a significant anemia or gross electrolyte imbalance. Lipase and transaminases are not diagnostic. Patient CT scan is as above and was reviewed by myself and radiology, and is consistent with acute appendicitis. The patient was discussed with Dr. Kat, general surgeon, who agreed to evaluate the patient here in the ER. The patient was started on Mefoxin. Please see Dr. Kat's dictation for further patient course, plan, and disposition. The chart was completed utilizing [employer] Voice Recognition Software. Grammatical errors, random word insertions, pronoun errors, and incomplete sentences are an occasional consequence of this system due to software limitations, ambient noise, and hardware issues. Any formal questions or concerns about the content, text, or information contained within the body of this dictation should be directly addressed to the provider for clarification. . Impression & Plan Acute appendicitis Discharge Plan Visit Data *Final* Discharge Date/Time: 05/29/19 09:10 Chief Complaint: Abdominal Pain Stated Complaint: ABD PAIN ED Provider: Desi Watters ED Midlevel Provider: Wu Wong Discharge Problem: Acute appendicitis Patient Disposition: Admitted As Inpatient Discharge Instructions Interventions: ED Discharge Assessment Last Done: 05/29/19 09:10 Discharge Problem: Acute appendicitis Qualifiers: Acute appendicitis type: unspecified acute appendicitis type Qualified Code(s): K35.80 - Unspecified acute appendicitis
[2019-05-29] MEDS ORDERED: cefOXitin 2,000 MG/60 ML BAG IV STA (07:04)
--- NOTE | 2019-05-29 07:11 | CT Scan Report ---
ABDOMEN AND PELVIS CT WITH IV AND ORAL CONTRAST CT DOSE: 287.47 mGy.cm HISTORY: Acute right lower quadrant abdominal pain RLQ abd pain TECHNIQUE: Multiaxial CT images of the abdomen and pelvis were performed following the IV administrat ion of 92 cc of Optiray 320 and oral contrast. A dose lowering technique was utilized adhering to e principles of ALARA. COMPARISON STUDY: Chest CT 07/31/2014. FINDINGS: Lung bases are clear. No pneumatosis or pneumoperitoneum. The imaged inferior cardiac chambers are un remarkable. Unremarkable spleen, pancreas, adrenal glands, gallbladder and liver. Patency of the hepa tic and portal veins. Kidneys, ureters, urinary bladder and prostate are unremarkable. Aorta and IVC are unremarkable. No adenopathy. No bowel obstruction. The appendix is dilated and fluid-filled measuring up to 10 mm transversely wit h circumferential wall thickening and mucosal hyperemia. Patency inflammation with trace reactive free fluid. No evidence of perforation, drainable fluid hany ection or appendicolith. Soft tissues are unremarkable. Bones of the left femoral head and right joelle c crest. 2.9 cm peripherally corticated bone fragment along the lateral aspect of the superior right acetabulum is suggestive of an os acetabula with mild underlying associated subcortical cystic change . IMPRESSION: 1. Findings compatible with acute uncomplicated appendicitis. No evidence of perforation or rupture. 2. No bowel obstruction. 3. Right os acetabula. ACT 112: Negative or not required by law. The above report was generated using voice recognition software. It may contain grammatical, syntax o r spelling errors. Electronically signed by: Jose Roe M.D. 05/29/2019 7:10 AM
--- NOTE | 2019-05-29 08:36 | History & Physical Report ---
Date of Service May 29, 2019 Assessment & Plan (1) Acute appendicitis: 23 year-old male who presented to ED with less than 12 hour history of right lower abdominal pain with associated nausea and vomiting. Afebrile, leukocytosis of 16K. CT scan showing the appendix is dilated and fluid-filled measuring up to 10 mm transversely with circumferential wall thickening and mucosal hyperemia. Plan: Discussed with patient option of IV antibiotics vs laparoscopic appendectomy. However given his pain/discomfort and dilated appendix at 10 mm would recommend surgical approach. Patient agrees. Discussed procedure and risks including but not limited to bleeding, infection, injury to surrounding organs/tissues, staple line leak, intraabdominal abscess. Discussed recovery and restrictions. Will proceed with laparoscopic appendectomy Med/surg floor, IV Cefoxitin, IV fluids, IV Morphine prn pain, IV Zofran prn nausea Dr. albarran to see patient preoperative and obtain consent. History of Present Illness Chief Complaint: Right lower abdominal pain Primary Care Provider: NO PCP Shar presented to emergency department late last evening with complaint of right lower abdominal pain that began around 10 pm after eating. States he had associated nausea and vomiting and the pain began to escalate without relief. States he did not have fever. No diarrhea or blood in stools. No difficulty urinating. No prior history of similar abdominal pain. States he has never had any abdominal surgeries or surgeries in general. No blood thinning agents. Does smoke marijuana on weekends. Denies history of illicit drug use even though there is documentation of Heroin use in chart. Past smoking history but dose smoke cigarettes occasionally. ER work-up included labs which showed leukocytosis of 16K. CT can of abdomen and pelvis with oral and IV contrast showing the appendix is dilated and fluid- filled measuring up to 10 mm transversely with circumferential wall thickening and mucosal hyperemia. He currently states his pain is about 7/10. Movement makes pain worse. Pain located in right lower abdomen with radiation to midline. Allergies Allergy/AdvReac Type Severity Reaction Status Date / Time No Known Allergies Allergy Unverified 05/29/19 02:36 Home Medications Home Medications Medication Instructions Recorded Confirmed Type No Known Home Medications 05/29/19 05/29/19 History Past Med/Surg History Medical History Drug abuse (Acute) Pulmonary contusion (Resolved) Social History Preferred Language: Greek Communication Ability: Effective Applications Programmer Required: No Beliefs That Will Affect Care: None Current Living Situation: Parent Other Information That Helps Us Care for You: No Feels Safe at Home: Yes Safety Concerns: Feels Safe At This Time Smoking Status: Former smoker Do You Dip or Chew Tobacco: No ; Second Hand Exposure: No ; Tobacco Cessation Education Requested by Patient: No Hx Alcohol Use: Yes Hx Substance Use: Yes substance use type: other Substance Use Type Other:: history of + toxicology of THC and opiates Last Used Substance: Unknown Review of Systems Review of Systems: All systems reviewed & are unremarkable except as noted in HPI & below Physical Exam Constitutional: WD/WN, vitals as above not ill appearing Respiratory: normal respiratory effort, lungs clear to auscultation Cardiovascular: Rate/Rhythm: + tachycardic Heart Sounds: normal S1 and normal S2; no murmur Gastrointestinal (Abdomen): Inspection/Auscultation: abdomen normal to inspect ion and normal bowel sounds; abdomen not distended Percussion/Palpation: + abdomen tender (RLQ), + guarding and abdomen soft; abdomen not rigid Skin: no rashes, warm and dry Psychiatric: A+Ox3, euthymic affect Results & Data Vital Signs (Past 12 Hours) Vital Signs Temp Pulse Pulse Resp BP BP Pulse Ox 05/29/19 07:54 104 H 18 130/78 96 05/29/19 06:45 96 H 18 147/84 H 98 05/29/19 06:02 98 H 24 99 05/29/19 05:20 102 H 22 147/84 H 98 05/29/19 04:21 22 98 05/29/19 04:00 98 H 28 H 155/90 H 98 05/29/19 02:24 36.6 C 103 H 20 133/85 94 Laboratory Results 05/29/19 05/29/19 05/29/19 Range/Units 04:07 02:55 02:55 WBC 16.08 H (4.8-10.8) K/uL RBC 5.07 (4.7-6.1) M/uL Hgb 16.2 (14.0-18.0) g/dL Hct 45.4 (42-52) % MCV 89.5 (80-100) fL MCH 32.0 (25-34) pg MCHC 35.7 (32-36) g/dL RDW Std Deviation 39.9 (36.4-46.3) fL RDW Coeff of He 12.4 (11.5-14.5) % Plt Count 324 (130-400) K/uL MPV 8.9 (7.4-10.4) fL Immature Gran % (Auto) 0.2 % Neut % (Auto) 78.6 % Lymph % (Auto) 11.2 % [place] % (Auto) 9.8 % Eos % (Auto) 0.1 % Baso % (Auto) 0.1 % Immature Gran # (Auto) 0.04 H (0.00-0.02) K/uL Neut # (Auto) 12.64 H (1.4-6.5) K/uL Lymph # (Auto) 1.80 (1.2-3.4) K/uL [place] # (Auto) 1.58 H (0.11-0.59) K/uL Eos # (Auto) 0.01 (0-0.5) K/uL Baso # (Auto) 0.01 (0-0.2) K/uL Sodium 136 (136-145) mmol/L Potassium 3.5 (3.5-5.1) mmol/L Chloride 103 (98-107) mmol/L Carbon Dioxide 28 (21-32) mmol/L Anion Gap 5.0 (3-11) BUN 13 (7-18) mg/dl Creatinine 0.89 (0.6-1.4) mg/dl Est Cr Clr Drug Dosing 115.5 ml/min Est GFR ( Amer) 138.7 Est GFR (Non-Af Amer) 119.7 BUN/Creatinine Ratio 14.8 (10-20) Glucose 119 H (70-99) mg/dl Calcium 9.6 (8.5-10.1) mg/dl Total Bilirubin 1.2 H (0.2-1) mg/dl AST 45 H (15-37) U/L ALT 70 (12-78) U/L Alkaline Phosphatase 64 (45-117) U/L Total Protein 8.1 (6.4-8.2) gm/dl Albumin 4.4 (3.4-5.0) gm/dl Globulin 3.7 (2.5-4.0) gm/dl Albumin/Globulin Ratio 1.2 (0.9-2) Urine Color Yellow Urine Appearance Cloudy A (Clear) Urine pH 7.5 (4.5-7.5) Ur Specific [place] 1.004 (1.000-1.030) Urine Protein Negative (Negative) Urine Glucose (UA) Negative (Negative) Urine Ketones Trace H (Negative) Urine Blood Negative (Negative) Urine Nitrite Negative (Negative) Urine Bilirubin Negative (Negative) Urine Urobilinogen Negative (Negative) Ur Leukocyte Esterase Negative (Negative) Urine RBC 0-4 (0-4) /hpf Urine WBC 0-5 (0-5) /hpf Ur Epithelial Cells >30 H (0-5) /lpf Urine Bacteria Negative (Negative) Diagnostic Findings ABDOMEN AND PELVIS CT WITH IV AND ORAL CONTRAST CT DOSE: 287.47 mGy.cm HISTORY: Acute right lower quadrant abdominal pain RLQ abd pain TECHNIQUE: Multiaxial CT images of the abdomen and pelvis were performed following the IV administration of 92 cc of Optiray 320 and oral contrast. A dose lowering technique was utilized adhering to the principles of ALARA. COMPARISON STUDY: Chest CT 07/31/2014. FINDINGS: Lung bases are clear. No pneumatosis or pneumoperitoneum. The imaged inferior cardiac chambers are unremarkable. Unremarkable spleen, pancreas, adrenal glands, gallbladder and liver. Patency of the hepatic and portal veins. Kidneys, ureters, urinary bladder and prostate are unremarkable. Aorta and IVC are unremarkable. No adenopathy. No bowel obstruction. The appendix is dilated and fluid-filled measuring up to 10 mm transversely with circumferential wall thickening and mucosal hyperemia. Patency inflammation with trace reactive free fluid. No evidence of perforation, drainable fluid collection or appendicolith. Soft tissues are unremarkable. Bones of the left femoral head and right iliac crest. 2.9 cm peripherally corticated bone fragment along the lateral aspect of the superior right acetabulum is suggestive of an os acetabula with mild underlying associated subcortical cystic change. IMPRESSION: 1. Findings compatible with acute uncomplicated appendicitis. No evidence of perforation or rupture. 2. No bowel obstruction. 3. Right os acetabula. Code Status & VTE Plan VTE Prophylaxis Plan VTE Prophylaxis will be ordered: Yes
[2019-05-29] MEDS ORDERED: OXYCODONE/ACETAMINOPHEN 5mg/325mg TAB PO PRN (09:33)
[2019-05-29] MEDS ORDERED: MoRPHine SULFATE 4 MG/ML 1 ML CARP\\VIAL IV PRN ×2 (09:33→17:52)
[2019-05-29] MEDS ORDERED: ONDANSETRON INJ 2 MG/ML 2 ML VIAL IV PRN ×2 (09:33→13:21)
[2019-05-29] MEDS ORDERED: MoRPHine SULFATE 10 MG/ML CARP/VIAL IV PRN (09:33)
--- NOTE | 2019-05-29 10:01 | History & Physical Bridge Note ---
Date of Service May 29, 2019 History & Physical Bridge Note I have examined the patient, reviewed the History & Physical and in the interval since the performance of the History & Physical I have noted the following changes of clinical significance: no changes noted
[2019-05-29] MEDS ORDERED: ROCURONIUM BROMIDE 10 MG/ML 5 ML VIAL ONE (12:38)
[2019-05-29] MEDS ORDERED: DEXAMETHASONE SOD INJ 4 MG/ML VIAL ONE (12:38)
[2019-05-29] MEDS ORDERED: BUPIVACAINE 0.5 % 5 MG/1 ML MPF 30ML VIAL ONE (12:38)
[2019-05-29] MEDS ORDERED: MIDAZOLAM HCL 1 MG/ML 2ML VIAL ONE (12:38)
[2019-05-29] MEDS ORDERED: NEOSTIGMINE METHYLSULFATE 5 MG/5 ML SYR ONE (12:38)
[2019-05-29] MEDS ORDERED: PROPOFOL IV EMULSION 10 MG/ML 20 ML VIAL IV ONE (12:38)
[2019-05-29] MEDS ORDERED: ONDANSETRON INJ 2 MG/ML 2 ML VIAL ONE (12:38)
[2019-05-29] MEDS ORDERED: fentaNYL citrate 100 MCG/2 ML VIAL ONE ×2 (12:38)
[2019-05-29] MEDS ORDERED: LIDOCAINE HCL 2% 2 ML VIAL/AMP(20MG/ML) INFIL ONE (12:38)
[2019-05-29] MEDS ORDERED: GLYCOPYRROLATE 0.2 MG/ML VIAL ONE ×2 (12:38→13:26)
[2019-05-29] MEDS ORDERED: SUCCINYLCHOLINE CHLORIDE 20 MG/ML 10 ML VIAL ONE (12:38)
[2019-05-29] MEDS ORDERED: BACITRACIN OINT 15 GM TUBE ONE (12:38)
[2019-05-29] MEDS ORDERED: LIDOCAINE HCL 1% 20 ML VIAL ONE (12:38)
--- NOTE | 2019-05-29 12:41 | Anesthesiology Consultation ---
Date of Service May 29, 2019 Assessment & Plan (1) Encounter for pre-operative examination: Chart Review Chart Review: Acceptable Risk for Surgery and Patient NOT seen in Pre Admission Testing Consults Requested none History Surgery Operation Date: 05/29/19 11:20 Proposed Procedures p Laparoscopic Appendectomy - Mely Kat MD Height/Weight Height: 5 ft 6 in Weight: 66.6 kg Allergies Allergy/AdvReac Type Severity Reaction Status Date / Time No Known Allergies Allergy Unverified 05/29/19 12:10 Medications Home Medications Medication Instructions Recorded Confirmed Last Taken No Known Home Medications 05/29/19 05/29/19 Unknown Active Medications Generic Name Dose Route Start Last Admin Trade Name Freq PRN Reason Stop Dose Admin Sodium Chloride 1,000 mls @ 125 mls/hr 05/29/19 09:33 05/29/19 11:57 Nss 1000ml IV 06/28/19 09:32 0 mls/hr .Q8H BHAVANI Infusion Morphine Sulfate 4 mg 05/29/19 09:33 05/29/19 11:02 Morphine Sulfate IV 06/12/19 09:32 4 mg Q3H PRN Administration SEVERE Pain (Scale 7,8,9,10) NPO Date Last Intake of Fluids: 05/29/19 Time Last Intake of Fluids: 04:00 Last Intake of Fluids Comment: Contrast dye Date Last Intake of Solids: 05/28/19 Time Last Intake of Solids: 21:00 Past Medical History Medical History (Updated 05/29/19 @ 12:41 by Fede Hawkins MD) Drug abuse (Acute) Pulmonary contusion (Resolved) Tobacco abuse Social History Smoking Status: Former smoker Do You Dip or Chew Tobacco: No Hx Alcohol Use: Yes alcohol intake frequency: holidays/special occasions only Hx Substance Use: Yes substance use type: other Substance Use Type Other:: history of + toxicology of THC and opiates Last Used Substance: Unknown Physical Exam Vital Signs Last Vital Signs Temp 37.0 C 05/29/19 12:13 Pulse 87 05/29/19 12:13 Resp 18 05/29/19 12:13 BP 122/75 05/29/19 12:13 Pulse Ox 95 05/29/19 12:13 Testing Laboratory Results 05/29/19 02:55 05/29/19 02:55 Urine Color Yellow 05/29/19 04:07 Urine Appearance Cloudy (Clear) A 05/29/19 04:07 Urine pH 7.5 (4.5-7.5) 05/29/19 04:07 Ur Specific [place] 1.004 (1.000-1.030) 05/29/19 04:07 Urine Protein Negative (Negative) 05/29/19 04:07 Urine Glucose (UA) Negative (Negative) 05/29/19 04:07 Urine Ketones Trace (Negative) H 05/29/19 04:07 Urine Nitrite Negative (Negative) 05/29/19 04:07 Ur Leukocyte Esterase Negative (Negative) 05/29/19 04:07 Urine RBC 0-4 /hpf (0-4) 05/29/19 04:07 Urine WBC 0-5 /hpf (0-5) 05/29/19 04:07 Ur Epithelial Cells >30 /lpf (0-5) H 05/29/19 04:07
[2019-05-29] MEDS ORDERED: fentaNYL citrate 100 MCG/2 ML VIAL IV PRN (13:21)
[2019-05-29] MEDS ORDERED: ATROPINE SULFATE 0.1 MG/ML 10ML SYR IV PRN (13:21)
[2019-05-29] MEDS ORDERED: ePHEDrine sulfate 50 MG/ML AMP IV PRN (13:21)
[2019-05-29] MEDS ORDERED: LABETALOL HCL IV 5 MG/ML 20ML IV PRN (13:21)
[2019-05-29] MEDS ORDERED: HYDROmorphone INJ 1 MG/ML SYRINGE IV PRN (13:21)
[2019-05-29] MEDS ORDERED: PHENYLEPHRINE 100MCG/ML 5ML SYR IV PRN (13:21)
[2019-05-29] MEDS ORDERED: MEPERIDINE HCL 25 MG/ML CARP IV PRN (13:21)
--- NOTE | 2019-05-29 13:30 | Post Operative Brief Note ---
Immediate Post Op Note v1 Date of Surgery May 29, 2019 Pre & Post Diagnosis Operation Date: 05/29/19 11:20 Pre-Op Diagnosis: ACUTE APPENDICITIS Post-Op Diagnosis: ACUTE APPENDICITIS I identified the patient and participated in the time-out.: Yes Procedure Operation Date: 05/29/19 11:20 Actual Procedures p Laparoscopic Appendectomy(Not Applicable) - Mely Kat MD Surgeon Mely Kat MD Bench Inspector AMRITA Mehta Estimated Blood Loss 5 Findings Consistent with Post-Op Diagnosis Fluids 600ml Specimens appendix Anesthesia Type General Complications none Disposition Accompanied Patient To Recovery: Yes Disposition: Recovery Room Overlapping Procedure I was immediately available: during the entire case.
[2019-05-29] MEDS ORDERED: KETOROLAC 30 MG/ML VIAL ONE (13:31)
[2019-05-29] MEDS: LACTATED RINGER'S 1,000 ML IV SCH (14:40)
--- NOTE | 2019-05-29 14:41 | Anesthesiology Progress Note ---
Date of Service May 29, 2019 Anesthesia Post Procedure Vital Signs Vital Signs: Temp Pulse Pulse Pulse Resp BP BP 05/29/19 14:30 36.8 C 89 16 122/67 05/29/19 14:20 95 H 11 L 122/70 05/29/19 14:10 95 H 15 121/80 05/29/19 14:00 36.9 C 85 16 123/77 05/29/19 12:13 37.0 C 87 18 122/75 05/29/19 09:38 36.7 C 92 H 16 128/82 05/29/19 09:06 88 18 135/79 05/29/19 07:54 104 H 18 130/78 05/29/19 06:45 96 H 18 147/84 H 05/29/19 06:02 98 H 24 05/29/19 05:20 102 H 22 147/84 H 05/29/19 04:21 22 05/29/19 04:00 98 H 28 H 155/90 H 05/29/19 02:24 36.6 C 103 H 20 133/85 Pulse Ox Pulse Ox 05/29/19 14:30 95 05/29/19 14:20 96 05/29/19 14:10 99 05/29/19 14:00 97 05/29/19 12:13 95 05/29/19 09:38 96 96 05/29/19 09:06 98 05/29/19 07:54 96 05/29/19 06:45 98 05/29/19 06:02 99 05/29/19 05:20 98 05/29/19 04:21 98 05/29/19 04:00 98 05/29/19 02:24 94 Pain Intensity Abdomen: Pain Intensity: 3 Transfer of Care Handoff Completed per policy Notes Mental Status: alert / awake / arousable Patient Amnestic to Procedure: Yes Nausea / Vomiting: adequately controlled Pain: adequately controlled Airway Patency, RR, SpO2: stable & adequate BP & HR: stable & adequate Hydration State: stable & adequate Anesthetic Complications: no major complications apparent and Pt Satisfied with anesthetic care
[2019-05-29] MEDS: cefOXitin 2,000 MG in DEXTROSE 5% 50 ML IV SCH ×2 (14:48→20:18)
[2019-05-29] MEDS: OXYCODONE/ACETAMINOPHEN 5mg/325mg TAB PO PRN ×2 (15:04→20:20)
--- NOTE | 2019-05-29 15:37 | Operative Report ---
DATE OF OPERATION: 05/29/2019 PREOPERATIVE DIAGNOSIS: Acute appendicitis. POSTOPERATIVE DIAGNOSIS: Acute appendicitis. OPERATION: Laparoscopic appendectomy. SURGEON: Mely Kat MD. ANESTHESIA: General. CROCHETER HAND: Brittany Bates PA-C. FINDINGS: Acute appendicitis. COMPLICATIONS: None. INDICATIONS FOR THE PROCEDURE: This is a 23-year-old gentleman who presented to the ED with acute abdominal pain. The patient had a CT scan diagnosis of acute appendicitis. I recommended to do laparoscopic appendectomy, possible open. I did talk to the patient and the patient's parents about the benefit, risk, and alternate procedure. I indicated the risks may include but not limited to such as bleeding, infection, sepsis, abscess, injury to the bowel, bowel obstruction. They understand. The patient signed informed consent and I answered all questions. DETAILS OF PROCEDURE: We brought the patient to the OR, put the patient in supine position. The patient received SCD on bilateral legs to prevent DVT. Also, patient received 2 g of cefoxitin IV for prophylactic antibiotic. The patient received general anesthesia without difficulty. The abdomen was prepped and draped in routine sterile fashion. After timeout, I injected local anesthesia by using 1% lidocaine mixed with 0.5% Marcaine just above the umbilicus. Then, I made a small incision just above the umbilicus, opened fascia, opened peritoneum under direct vision, put a Jae trocar in, connected to CO2 to create pneumoperitoneum, flow rate at 6 liters per minute, pressure not more than 14 mmHg. Once we got a nice pneumoperitoneum, we put a camera in, looked around the abdomen. It shows normal finding on the small bowel, large bowel; however, appendix showed it is significantly enlarged, close to 1.1 cm, significant inflammation, confirmed the diagnosis of acute appendicitis. Then, we put another two 5 mm trocars in the left lower quadrant area, then we used a grasper to hold the appendiceal, used the Harmonic to take down appendiceal, rechecked, no active bleeding. Then, I used a 45 mm Endo-CONNER staple for transection on the base of the appendix. The staple line is intact. No leak, no active bleeding. Then, we removed the appendix through the catch bag. Then, we reinserted the Jae trocar in, connected to CO2 to create pneumoperitoneum, again looked around the abdomen, no active bleeding, no leak from the staple line. Then, we removed all trocars under direct vision. No active bleeding from the trocar site. Pneumoperitoneum was released. Then, I closed the umbilical incision, fascial layer by using #1 Vicryl [id number] x2, closed subcutaneous layer by using 2-0 Vicryl interruptedly, closed skin by using 4-0 Vicryl continuous running, closed another two 5 mm trocar sites skin only by using 4-0 Vicryl, then we put the dressing on. The patient tolerated the procedure well. All instrument, needle and sponge count were correct x2 at the end of the case. The patient was transferred to recovery room in stable condition. The specimen was sent to pathology. After the procedure, I did talk to the patient's parents about the OR finding and the procedure we did, they understand. I attest to the content of the Intraoperative Record and any orders documented therein. Any exception s are noted below.
[2019-05-29] MEDS ORDERED: MoRPHine SULFATE 2 MG/ML CARP IV PRN (17:53)
[2019-05-30] MEDS: OXYCODONE/ACETAMINOPHEN 5mg/325mg TAB PO PRN ×2 (00:27→07:56)
[2019-05-30] MEDS: cefOXitin 2,000 MG in DEXTROSE 5% 50 ML IV SCH ×2 (01:52→07:45)
[2019-05-30] MEDS: LACTATED RINGER'S 1,000 ML IV SCH (03:06)
[2019-05-30 05:49] LABS: Basophils # (auto) 0.01 K/uL (0-0.2); Basophils % (auto) 0.1 %; Eosinophils # (auto) 0.02 K/uL (0-0.5); Eosinophils % (auto) 0.2 %; Hemoglobin 14.5 g/dL (14.0-18.0); Immature Granulocytes # (auto) 0.01 K/uL (0.00-0.02); Immature Granulocytes % (auto) 0.1 %; Lymphocytes # (auto) 2.22 K/uL (1.2-3.4); Lymphocytes % (auto) 22.9 %; Mean Corpuscular Hemoglobin 31.5 pg (25-34); Mean Corpuscular Hgb Conc 33.7 g/dL (32-36); Mean Corpuscular Volume 93.5 fL (80-100); Monocytes % (auto) 10.3 %; Neutrophils # (auto) 6.44 K/uL (1.4-6.5); Neutrophils % (auto) 66.4 %; Platelet Count 317 K/uL (130-400); RDW Coefficient of Variation 12.3 % (11.5-14.5); RDW Standard Deviation 41.8 fL (36.4-46.3)
--- NOTE | 2019-05-30 10:50 | Surgery Progress Note ---
Date of Service S/P laparosocpic appendectomy, POD 1 pt is doing fine, he tolerated diet, no nausea, no vomiting, less abdominal pain, WBC 9,000. May 30, 2019 Assessment & Plan (1) Acute appendicitis: 23 year-old male who presented to ED with less than 12 hour history of right lower abdominal pain with associated nausea and vomiting. Afebrile, leukocytosis of 16K. CT scan showing the appendix is dilated and fluid-filled measuring up to 10 mm transversely with circumferential wall thickening and mucosal hyperemia. Plan: Discussed with patient option of IV antibiotics vs laparoscopic appendectomy. However given his pain/discomfort and dilated appendix at 10 mm would recommend surgical approach. Patient agrees. Discussed procedure and risks including but not limited to bleeding, infection, injury to surrounding organs/tissues, staple line leak, intraabdominal abscess. Discussed recovery and restrictions. Will proceed with laparoscopic appendectomy Med/surg floor, IV Cefoxitin, IV fluids, IV Morphine prn pain, IV Zofran prn nausea Dr. albarran to see patient preoperative and obtain consent. 05/30/2019 10: 49AM doing fine, pt wants to go home, the post-op care instruction was given F/U 1-2 weeks, Physical Exam Constitutional: WD/WN, vitals as above well developed and well nourished Neck: trachea midline, no thyromegaly Respiratory: normal respiratory effort, lungs clear to auscultation Cardiovascular: RRR, no murmur, no edema Rate/Rhythm: regular rate and regular rhythm Gastrointestinal (Abdomen): Percussion/Palpation: abdomen soft mild incision pain, no distend, all incisions intact, no drainage, BS+ Musculoskeletal: no cyanosis or clubbing, extremities motor strength 5/5 Neurologic: awake Psychiatric: Orientation: alert and oriented x 3 Results & Data Vital Signs (Past 12 Hours) Vital Signs Temp Pulse Pulse Resp BP Pulse Ox 05/30/19 07:52 36.3 C L 52 L 16 114/65 98 05/30/19 03:04 36.4 C L 72 16 118/67 97 Laboratory Results Abnormal lab results 05/30/19 Range/Units 05:27 RBC 4.60 L (4.7-6.1) M/uL [place] # (Auto) 1.00 H (0.11-0.59) K/uL (1) Acute appendicitis Acute appendicitis type: unspecified acute appendicitis type Qualified Code(s): K35.80 - Unspecified acute appendicitis
--- NOTE | 2019-05-30 23:53 | Discharge Summary ---
ADMITTING DIAGNOSIS: Acute appendicitis. DISCHARGE DIAGNOSIS: Acute appendicitis. OPERATION: Laparoscopic appendectomy. SURGEON: Mely Kat MD DETAILS OF DISCHARGE SUMMARY: This is a 23-year-old gentleman who presented to ED with 1 day history of abdominal pain. The patient had a CT scan diagnosis of acute appendicitis. We took the patient to the OR. We did a laparoscopic appendectomy. The patient tolerated the procedure well. After procedure, the patient was transferred to recovery room and later on transferred to regular floor. The patient is doing fine. He tolerated a diet and passed some gas. No significant abdominal pain, no nausea, no vomiting. PHYSICAL EXAMINATION: VITAL SIGNS: Temperature is 36.4, heart rate is 72, respiratory rate is 16, blood pressure is 114/65, O2 saturation 98% on room air. GENERAL: The patient is alert, awake, oriented x3. HEENT: With normal limitation. NEUROLOGIC: Exam intact. NECK: No JVD. CHEST: Bilateral lung sounds clear. HEART: Normal S1, S2. No murmur. ABDOMEN: Soft and nondistended, mild tenderness on the incision site. Incision intact. No redness, no drainage. Bowel sounds positive. EXTREMITIES: No edema. The patient wanted to go home today. We discharged the patient home. I gave the patient postop care instruction, the patient understands. I will follow up the patient in 1 or 2 weeks, the patient understands.
== END 2019-05-30 11:28 | disposition home or self-care (01) ==
LOC: ED 02:11 → 3N 02:11

== ENCOUNTER 2021-06-03 06:34 | Inpatient (IN) ==
[~2021-06-03 06:34] MED LIST changes: +HALOPERIDOL LACTATE 5 MG/ML 1 ML VIAL ONE; -OXYC1TAB3 PO
[2021-06-03] MEDS ORDERED: SODIUM CHLORIDE 0.9% 1000ML 1,000 ML IV SCH ×2 (06:45→11:33)
[2021-06-03 07:12] LABS: Basophils # (auto) 0.01 K/uL (0-0.2); Basophils % (auto) 0.1 %; Eosinophils # (auto) 0.02 K/uL (0-0.5); Eosinophils % (auto) 0.1 %; Hematocrit (blood only) 47.8 % (42-52); Hemoglobin 16.5 g/dL (14.0-18.0); Immature Granulocytes # (auto) 0.09 K/uL (0.00-0.02); Immature Granulocytes % (auto) 0.5 %; Lymphocytes # (auto) 1.04 K/uL (1.2-3.4); Lymphocytes % (auto) 6.2 %; Mean Corpuscular Hemoglobin 32.4 pg (25-34); Mean Corpuscular Hgb Conc 34.5 g/dL (32-36); Mean Corpuscular Volume 93.9 fL (80-100); Mean Platelet Volume 8.8 fL (7.4-10.4); Neutrophils # (auto) 15.02 K/uL (1.4-6.5); Neutrophils % (auto) 90.1 %; Platelet Count 400 K/uL (130-400); RDW Coefficient of Variation 12.5 % (11.5-14.5); RDW Standard Deviation 43.2 fL (36.4-46.3); Red Blood Count 5.09 M/uL (4.7-6.1); White Blood Count 16.68 K/uL (4.8-10.8)
[2021-06-03 07:24] LABS: Prothrombin Time 10.6 Seconds (9.0-12.0)
--- NOTE | 2021-06-03 07:24 | Emergency Department Note ---
Impression & Plan Drug overdose, AMS (altered mental status), Hypothermia, Atrial flutter with rapid ventricular response, Elevated creatine kinase level, Leukocytosis, Acute hypotension ED Provider Note INFORMANT: Patient and EMS ED PROVIDER(S): Delonte Cole MD CHIEF COMPLAINT: Overdose PLAN: Disposition: admitted Condition: Good Outpatient prescription management: none Referral: none MEDICAL DECISION MAKING: Patient presented due to suspected overdose. He admitted to using opiates. he required narcan then sedation. On arrival he was sedate, easily arousable, but hypothermic and in rapid aflutter. He was cool to touch without obvious signs of any frostbite. I suspect the hypothermia was contributing to the dysrhythmia. Fluid warmer ordered. He was hydrated. He had a bear hugger radha lied. His monitoring appeared to convert to a sinus tachycardia. Repeat ECG was performed and he was in a sinus tachycardic rhythm with resolution of the A- flutter. The patient's blood work showed that he had a leukocytosis, mild elevation of his total CK, and mild elevation of his blood alcohol level. Urine and urine drug screen pending. The patient had some mild hypotension. This responded to IV fluids. He still very sedate from the events prehospital but still arousable to voice and resting comfortably. Chest x-ray was unremarkable. Covid testing negative. Further management in the hospital will be necessary under the circumstances. [facility] Patient was evaluated in the ER and admitted for further management. Triage Nursing notes reviewed and agree them. Vital Signs: reviewed and remarkable for tachycardia Differential diagnosis: Drug overdose, hypothermia, infection, hypoglycemia, electrolyte abnormalities, overdose, toxicologic, cardiac sources, intracerebral event, neurologic, trauma, as well as other pathologies. Diagnostics interpreted by me: ECG: Twelve-lead ECG #1 reveals atrial flutter with 2-1 conduction at 145 bpm. Peak T waves noted in V3 and V4 as well as inferiorly. No T wave inversions. Poor baseline data. No PVCs. ECG #2: Sinus tachycardia at 112 bpm. Lateral Q waves. No ST elevation or depression, PVCs or PACs. Normal axis Cardiac Monitoring:Cardiac monitoring ordered by me: The patient was placed on continuous cardiac monitoring and observed. It revealed a sinus tachycardic rhythm at 113 beats per minute without ectopy or evidence of dysrhythmia. Imaging studies: Chest x-ray. Findings: A chest x-ray was performed and revealed no pneumothorax, effusion, infiltrate, pulmonary edema, free air under the diaphragm, or wide mediastinum. Impression: No acute disease. HPI: The patient is a 25 year old male who presents to the Emergency Room with EMS because of suspected drug overdose. The patient was found in the wee hours of this morning by his father in a shed outside not responding. Patient does have a history of drug abuse and was administered Narcan by family. EMS arrived and patient was aggressive and very resistant. He required2 doses of IM Ativan 2 mg each. This helped calm him down. Patient was found to be tachycardic. Patient denied any trauma. No traumatic injuries noted by EMS. His axillary temperature was 93. Blood glucose was 290. No history of diabetes. Patient does admit to snorting pain pills, Oxy 10's. Patient denies any chest pain, breathing difficulties, headache, abdominal pain. ROS: See above HPI for pertinent positives & negatives. Limited secondary to mental status. PAST MEDICAL HISTORY:See Below , drug abuse PAST SURGICAL HISTORY:See Below, FAMILY HISTORY:See Below SOCIAL HISTORY:See Below, lives with family HOME MEDICATIONS:See Below ALLERGIES:See Below VITALS:See Below PHYSICAL EXAMINATION: GENERAL: Somnolent but easily arousable to voice, shivering at times no distress HENT: Normocephalic, atraumatic. Oropharynx unremarkable. EYES: PERRL. Erythematous conjunctiva. Sclera non-icteric. Pupils 3 mm bilaterally. Reactive. NECK: Supple. No nuchal rigidity. FROM. RESPIRATORY: CTA. No wheezes or rales. CARDIAC: Tachycardic, regular. No murmurs. GI/ABDOMEN: Soft, non distended. No tenderness to palpation. No rebound or guarding. No masses. RECTAL: Deferred. MUSCULOSKELETAL: No edema. No discoloration. Gross motor strength 5/5 bilaterally. NEURO: Altered sensorium. No sensory or motor deficits noted. Speech slurred. SKIN: Cool to the touch. No obvious signs of frostbite. No rash or jaundice noted. LYMPH: No adenopathy. CRITICAL CARE: I have personally spent greater than 35 minutes of critical care time in the direct management of this patient. This includes bedside care, interpretation of diagnostic studies, and testing, discussion with consultants, patient, and family members, and other required patient management activities. These minutes are in excess of all separately billable procedures. Delonte Cole MD Past Med/Surg History Medical History Drug abuse Pulmonary contusion Tobacco abuse Social History Smoking Status: Current every day smoker Tobacco Type: Smokeless Tobacco (Dip or Chew) Second Hand Exposure: No; Hx Alcohol Use: No Hx Substance Use: Yes Last Used Substance: Unknown Substance Use Type Other:: history of + toxicology of THC and opiates Preferred Language: Maldivian Communication Ability: Effective Box Lidder Required: No Beliefs That Will Affect Care: None Current Living Situation: Family Current Living Situation Comment: Dad and brother Feels Safe at Home: Yes Assistive Devices: None Allergies Allergies Allergy/AdvReac Type Severity Reaction Status Date / Time No Known Allergies Allergy Unverified 06/03/21 07:01 Home Meds Home Medications Medication Instructions Recorded Confirmed No Known Home Medications 06/03/21 06/03/21 Results & Data (ED) Vital Signs Vital Signs - 24 hr 06/03/21 06:46 06/03/21 07:00 06/03/21 07:01 Temperature 35.5 C L Temperature Source Rectal Pulse Rate 117 H 115 H 112 H Pulse Rate [Apical] Pulse Rhythm Regular Regular Pulse Strength Normal Respiratory Rate 27 H 16 18 Respiratory Effort / Characteristics Respiratory Depth Blood Pressure 121/76 114/55 L Blood Pressure [Left Arm] Blood Pressure Mean 91 74 Blood Pressure Mean [Left Arm] Blood Pressure Position Lying Pulse Oximetry 97 94 94 Oxygen Delivery Method Room Air Room Air Room Air Oxygen Flow Rate Sepsis Recent Fever Within 48 Hours No Sepsis New/Unexplained Change in Mental Status No Sepsis Action Taken by Nursing No Action Required Oxygen Flow Rate - Titration Pulse Oximetry Post Tiitration 06/03/21 07:15 06/03/21 07:32 06/03/21 07:35 Temperature Temperature Source Pulse Rate 113 H 116 H Pulse Rate [Apical] Pulse Rhythm Pulse Strength Respiratory Rate 18 20 Respiratory Effort / Characteristics Respiratory Depth Blood Pressure 105/58 L 101/45 L Blood Pressure [Left Arm] Blood Pressure Mean 73 63 Blood Pressure Mean [Left Arm] Blood Pressure Position Pulse Oximetry 94 96 92 Oxygen Delivery Method Room Air Nasal Cannula Nasal Cannula Oxygen Flow Rate 2 0 Sepsis Recent Fever Within 48 Hours Sepsis New/Unexplained Change in Mental Status Sepsis Action Taken by Nursing Oxygen Flow Rate - Titration 2 Pulse Oximetry Post Tiitration 94 06/03/21 07:45 06/03/21 08:30 06/03/21 09:00 Temperature 37.6 C H Temperature Source Rectal Pulse Rate 116 H Pulse Rate [Apical] 112 H Pulse Rhythm Pulse Strength Respiratory Rate 18 13 12 Respiratory Effort / Characteristics Non-Labored Spontaneous Respiratory Depth Normal Blood Pressure 89/41 L Blood Pressure [Left Arm] 109/44 L 98/52 L Blood Pressure Mean 57 Blood Pressure Mean [Left Arm] 65 67 Blood Pressure Position Pulse Oximetry 96 97 97 Oxygen Delivery Method Nasal Cannula Nasal Cannula Nasal Cannula Oxygen Flow Rate 2 2 2 Sepsis Recent Fever Within 48 Hours Sepsis New/Unexplained Change in Mental Status Sepsis Action Taken by Nursing Oxygen Flow Rate - Titration Pulse Oximetry Post Tiitration Laboratory Data Result diagrams: 06/03/21 06:55 06/03/21 06:55 Lab Results 06/03/21 06/03/21 06/03/21 Range/Units 06:55 06:55 06:55 WBC 16.68 H (4.8-10.8) K/uL RBC 5.09 (4.7-6.1) M/uL Hgb 16.5 (14.0-18.0) g/dL Hct 47.8 (42-52) % MCV 93.9 (80-100) fL MCH 32.4 (25-34) pg MCHC 34.5 (32-36) g/dL RDW Std Deviation 43.2 (36.4-46.3) fL RDW Coeff of He 12.5 (11.5-14.5) % Plt Count 400 (130-400) K/uL MPV 8.8 (7.4-10.4) fL Immature Gran % (Auto) 0.5 % Neut % (Auto) 90.1 % Lymph % (Auto) 6.2 % [place] % (Auto) 3.0 % Eos % (Auto) 0.1 % Baso % (Auto) 0.1 % Neut # (Auto) 15.02 H (1.4-6.5) K/uL Lymph # (Auto) 1.04 L (1.2-3.4) K/uL [place] # (Auto) 0.50 (0.11-0.59) K/uL Eos # (Auto) 0.02 (0-0.5) K/uL Baso # (Auto) 0.01 (0-0.2) K/uL Immature Gran # (Auto) 0.09 H (0.00-0.02) K/uL PT 10.6 (9.0-12.0) Seconds INR 1.0 (0.9-1.1) Sodium 142 (136-145) mmol/L Potassium 4.1 (3.5-5.1) mmol/L Chloride 107 (98-107) mmol/L Carbon Dioxide 22 (21-32) mmol/L Anion Gap 13.0 H (3-11) BUN 13 (7-18) mg/dl Creatinine 1.30 (0.6-1.4) mg/dl Est Cr Clr Drug Dosing Not Reportable Est GFR ( Amer) 87.3 ml/min Est GFR (Non-Af Amer) 75.3 ml/min BUN/Creatinine Ratio 9.7 L (10-20) Glucose 121 H (70-99) mg/dl Calcium 9.0 (8.5-10.1) mg/dl Total Bilirubin 0.2 (0.2-1) mg/dl AST 49 H (15-37) U/L ALT 68 (12-78) Alkaline Phosphatase 70 (45-117) U/L Total Creatine Kinase 572 H (39-308) U/L Troponin I < 0.015 (0-0.045) ng/ml Total Protein 8.0 (6.4-8.2) gm/dl Albumin 4.1 (3.4-5.0) gm/dl Globulin 3.9 (2.5-4.0) gm/dl Albumin/Globulin Ratio 1.1 (0.9-2) Ethyl Alcohol mg/dL (0-3) mg/dl SARS-CoV-2, RNA, NAAT (NEGATIVE) 06/03/21 06/03/21 Range/Units 06:55 07:03 WBC (4.8-10.8) K/uL RBC (4.7-6.1) M/uL Hgb (14.0-18.0) g/dL Hct (42-52) % MCV (80-100) fL MCH (25-34) pg MCHC (32-36) g/dL RDW Std Deviation (36.4-46.3) fL RDW Coeff of He (11.5-14.5) % Plt Count (130-400) K/uL MPV (7.4-10.4) fL Immature Gran % (Auto) % Neut % (Auto) % Lymph % (Auto) % [place] % (Auto) % Eos % (Auto) % Baso % (Auto) % Neut # (Auto) (1.4-6.5) K/uL Lymph # (Auto) (1.2-3.4) K/uL [place] # (Auto) (0.11-0.59) K/uL Eos # (Auto) (0-0.5) K/uL Baso # (Auto) (0-0.2) K/uL Immature Gran # (Auto) (0.00-0.02) K/uL PT (9.0-12.0) Seconds INR (0.9-1.1) Sodium (136-145) mmol/L Potassium (3.5-5.1) mmol/L Chloride (98-107) mmol/L Carbon Dioxide (21-32) mmol/L Anion Gap (3-11) BUN (7-18) mg/dl Creatinine (0.6-1.4) mg/dl Est Cr Clr Drug Dosing Est GFR ( Amer) ml/min Est GFR (Non-Af Amer) ml/min BUN/Creatinine Ratio (10-20) Glucose (70-99) mg/dl Calcium (8.5-10.1) mg/dl Total Bilirubin (0.2-1) mg/dl AST (15-37) U/L ALT (12-78) Alkaline Phosphatase (45-117) U/L Total Creatine Kinase (39-308) U/L Troponin I (0-0.045) ng/ml Total Protein (6.4-8.2) gm/dl Albumin (3.4-5.0) gm/dl Globulin (2.5-4.0) gm/dl Albumin/Globulin Ratio (0.9-2) Ethyl Alcohol mg/dL 35.1 H (0-3) mg/dl SARS-CoV-2, RNA, NAAT NEGATIVE (NEGATIVE) Administered Medications Discontinued Medications Haloperidol Lactate (Haloperidol Lactate 5 Mg/Ml 1 Ml Vial) Confirm Administered Dose 10 mg .ROUTE .STK-MED ONE Stop: 06/03/21 06:26 Last Admin: 06/03/21 07:49 Dose: Not Given Documented by: [id number] Sodium Chloride (Nss 1000ml) 1,000 mls @ 999 mls/hr IV .Q1H1M BHAVANI Stop: 06/03/21 07:45 Last Infusion: 06/03/21 08:08 Dose: 0 mls/hr Documented by: [id number] Admin: 06/03/21 07:07 Dose: 999 mls/hr Documented by: [id number] Sodium Chloride (Nss 1000ml) 500 mls @ 999 mls/hr IV .Q31M ONE Stop: 06/03/21 08:50 Last Infusion: 06/03/21 09:08 Dose: 0 mls/hr Documented by: [id number] Admin: 06/03/21 08:34 Dose: 999 mls/hr Documented by: [id number] Sodium Chloride (Nss 1000ml) 1,000 mls @ 200 mls/hr IV .Q5H STA Stop: 06/03/21 13:19 Last Infusion: 06/03/21 13:34 Dose: 0 mls/hr Documented by: [id number] Admin: 06/03/21 08:34 Dose: 200 mls/hr Documented by: [id number] Sodium Chloride (Nss 1000ml) 1,000 mls @ 100 mls/hr IV .Q10H [facility] Stop: 07/03/21 11:32 Last Admin: 06/03/21 12:19 Dose: 100 mls/hr Documented by: [id number] Imaging Data Radiologist's Impression: Chest X-Ray 06/03/21 06:45 XR chest 1V portable CLINICAL HISTORY: Overdose TECHNIQUE: Single frontal radiograph of the chest was obtained. Comparison: Comparison is made to chest one view 08/28/2018 FINDINGS: No lines and tubes are seen. The cardiomediastinal silhouette is normal. The lungs are clear. No evidence of pleural effusion or pneumothorax. IMPRESSION: No acute chest disease. ACT 112: Negative or not required by law. Electronically signed by: Antoine Escamilla M.D. 06/03/2021 8:01 AM Discharge Plan Visit Data Chief Complaint: Overdose (Accidental) Stated Complaint: overdose ED Provider: Delonte Cole Discharge Problem: Drug overdose, AMS (altered mental status), Hypothermia, Atrial flutter with rapid ventricular response, Elevated creatine kinase level, Leukocytosis, Acute hypotension Patient Disposition: Admitted As Inpatient Condition: Good Discharge Instructions Interventions: ED Discharge Assessment Last Done: 06/03/21 11:42
[2021-06-03 07:48] LABS: Chloride 107 mmol/L (98-107); Glucose 121 mg/dl (70-99); Potassium 4.1 mmol/L (3.5-5.1); Sodium 142 mmol/L (136-145)
[2021-06-03 07:52] LABS: Alanine Aminotransferase 68 (12-78); Aspartate Aminotransferase 49 U/L (15-37); BUN Creatinine Ratio 9.7 (10-20); Bilirubin,Total 0.2 mg/dl (0.2-1); Blood Urea Nitrogen 13 mg/dl (7-18); Carbon Dioxide 22 mmol/L (21-32); Creatine Kinase 572 U/L (39-308); Est GFR (African American) 87.3 ml/min; Est GFR (Non-African American) 75.3 ml/min
--- NOTE | 2021-06-03 08:02 | XRay Report ---
XR chest 1V portable CLINICAL HISTORY: Overdose TECHNIQUE: Single frontal radiograph of the chest was obtained. Comparison: Comparison is made to chest one view 08/28/2018 FINDINGS: No lines and tubes are seen. The cardiomediastinal silhouette is normal. The lungs are clear. No evid ence of pleural effusion or pneumothorax. IMPRESSION: No acute chest disease. ACT 112: Negative or not required by law. Electronically signed by: Antoine Escamilla M.D. 06/03/2021 8:01 AM
[2021-06-03 08:03] LABS: Albumin Globulin Ratio 1.1 (0.9-2); Albumin Level 4.1 gm/dl (3.4-5.0); Alkaline Phosphatase 70 U/L (45-117); Globulin 3.9 gm/dl (2.5-4.0); Troponin I < 0.015 ng/ml (0-0.045)
[2021-06-03] MEDS ORDERED: SODIUM CHLORIDE 0.9% 1000ML 1,000 ML IV STA (08:20)
[2021-06-03] MEDS ORDERED: SODIUM CHLORIDE 0.9% 1000ML 500 ML IV ONE (08:20)
--- NOTE | 2021-06-03 09:45 | History & Physical Report ---
Date of Service June 03, 2021 Assessment & Plan (1) Drug overdose: Plan: reportedly snorted oxycodone, unknown amount found unresponsive in shed [place] property given Narcan, made him extremely agitated now sedated with Ativan monitor on tele, see how he feels when he wakes up will work to get more of a back story (2) AMS (altered mental status): Plan: due to Ativan 4mg IM total supportive care with IV fluids (3) Hypothermia: Plan: 93 F on arrival temp coming up with bear hugger and warmed IV fluids now normal (4) Atrial flutter with rapid ventricular response: Plan: likely from hypothermia, oxycodone and Ativan converted to sinus tachycardia and then NSR with rewarming and IV fluids (5) Leukocytosis: Plan: likely reactive from overdose, Narcan no signs of infection History of Present Illness Chief Complaint: brought to ED by EMS for oxycodone overdose Primary Care Provider: Shar Choi MD 25 yo male with history of opiate overdose who was found outside in a shed this morning by his father. The history is obtained from the ED physician as the patient is lethargic and not speaking. He came home last night late, around midnight or even 1am. His father noticed later in the evening that he was not in the house and went looking for him. He was found in the shed, it was 10 degrees outside, he was lethargic and unresponsive. His father gave him Narcan after calling EMS. The patient became very agitated and aggressive and EMS arrived. They gave him Ativan 2mg IM and when he was still thrashing around they gave him another 2mg IM. He finally calmed down. In the ED he was hypothermic with temperature 93 degrees F. He was found to be in atrial flutter with 2:1 conduction. Bear hugger placed ans warmed saline given, temperature came up and atrial flutter broke to sinus tachycardia. He was borderline hypotensive, given 2 liters of NSS. CBC shows a reactive leukocytosis. Cr, Na, K are all stable. Ethyl alcohol was 35. CXR was normal. Asked to admit patient to monitor after he overdosed since he is still lethargic. Allergies Allergy/AdvReac Type Severity Reaction Status Date / Time No Known Allergies Allergy Unverified 06/03/21 07:01 Home Medications Medication Instructions Recorded Confirmed Type No Known Home Medications 06/03/21 06/03/21 History Past Med/Surg History Medical History Drug abuse Pulmonary contusion Tobacco abuse Social History Smoking Status: Current every day smoker Tobacco Type: Smokeless Tobacco (Dip or Chew) Second Hand Exposure: No; Hx Alcohol Use: No Hx Substance Use: Yes Last Used Substance: Unknown Substance Use Type Other:: history of + toxicology of THC and opiates Preferred Language: Occitan Communication Ability: Effective Coffee Host Required: No Beliefs That Will Affect Care: None Current Living Situation: Family Current Living Situation Comment: Dad and brother Other Information That Helps Us Care for You: No Feels Safe at Home: Yes Safety Concerns: Feels Safe At This Time Assistive Devices: None Review of Systems Review of Systems: Unobtainable due to reduced consciousness (lethargic) Physical Exam Physical Exam: General: well developed, well nourished, lethargic Neck: supple, trachea midline, normal thyroid Lungs: clear to auscultation bilaterally, normal respiratory effort, no accessory muscle use, no distress Heart: tachycardic S1 and S2, no murmur, peripheral pulses normal, capillary refill normal, no edema Abdomen: soft, NT, ND, + BS, no hepatomegaly, normal to percussion Extremities: normal in appearance, no cyanosis, no petechiae, strength is 5/5 bilaterally Neuro: lethargic, moves all extremities, no focal motor deficits, CN II-XII intact Skin: warm, dry, no rash, normal turgor Psych: lethargic Results & Data Results & Data ([facility]) Vital Signs (Past 12 Hours) Vital Signs Temp Pulse Pulse Resp BP BP Pulse Ox 06/03/21 09:00 112 H 12 98/52 L 97 06/03/21 08:30 37.6 C H 13 109/44 L 97 06/03/21 07:45 116 H 18 89/41 L 96 06/03/21 07:35 92 06/03/21 07:32 116 H 20 101/45 L 96 06/03/21 07:15 113 H 18 105/58 L 94 06/03/21 07:01 112 H 18 114/55 L 94 01/08/22 07:00 115 H 16 94 06/03/21 06:46 35.5 C L 117 H 27 H 121/76 97 Laboratory Results Laboratory Results - last 24 hr 06/03/21 06/03/21 06/03/21 06:55 06:55 06:55 WBC 16.68 H RBC 5.09 Hgb 16.5 Hct 47.8 MCV 93.9 MCH 32.4 MCHC 34.5 RDW Std Deviation 43.2 RDW Coeff of He 12.5 Plt Count 400 MPV 8.8 Immature Gran % (Auto) 0.5 Neut % (Auto) 90.1 Lymph % (Auto) 6.2 [place] % (Auto) 3.0 Eos % (Auto) 0.1 Baso % (Auto) 0.1 Neut # (Auto) 15.02 H Lymph # (Auto) 1.04 L [place] # (Auto) 0.50 Eos # (Auto) 0.02 Baso # (Auto) 0.01 Immature Gran # (Auto) 0.09 H PT 10.6 INR 1.0 Sodium 142 Potassium 4.1 Chloride 107 Carbon Dioxide 22 Anion Gap 13.0 H BUN 13 Creatinine 1.30 Est Cr Clr Drug Dosing Not Reportable Est GFR ( Amer) 87.3 Est GFR (Non-Af Amer) 75.3 BUN/Creatinine Ratio 9.7 L Glucose 121 H Calcium 9.0 Total Bilirubin 0.2 AST 49 H ALT 68 Alkaline Phosphatase 70 Total Creatine Kinase 572 H Troponin I < 0.015 Total Protein 8.0 Albumin 4.1 Globulin 3.9 Albumin/Globulin Ratio 1.1 Ethyl Alcohol mg/dL SARS-CoV-2, RNA, NAAT 06/03/21 06/03/21 06:55 07:03 WBC RBC Hgb Hct MCV MCH MCHC RDW Std Deviation RDW Coeff of He Plt Count MPV Immature Gran % (Auto) Neut % (Auto) Lymph % (Auto) [place] % (Auto) Eos % (Auto) Baso % (Auto) Neut # (Auto) Lymph # (Auto) [place] # (Auto) Eos # (Auto) Baso # (Auto) Immature Gran # (Auto) PT INR Sodium Potassium Chloride Carbon Dioxide Anion Gap BUN Creatinine Est Cr Clr Drug Dosing Est GFR ( Amer) Est GFR (Non-Af Amer) BUN/Creatinine Ratio Glucose Calcium Total Bilirubin AST ALT Alkaline Phosphatase Total Creatine Kinase Troponin I Total Protein Albumin Globulin Albumin/Globulin Ratio Ethyl Alcohol mg/dL 35.1 H SARS-CoV-2, RNA, NAAT NEGATIVE Code Status & VTE Plan VTE Prophylaxis Plan VTE Prophylaxis will be ordered: No PG Care Time/CCT Total # of Minutes Spent Total Time Spent with Patient: Total time spent is greater than 50% in coordination of care (as documented) at patient's floor/unit and/or counseling patient: Coding Level of Care Code 02123 Initial Inpt Care Lvl 2 Diagnoses AMS (altered mental status) R41.82 Hypothermia T68.XXXA Atrial flutter with rapid ventricular response I48.92 Leukocytosis D72.829 Drug overdose T50.901A
[2021-06-03] MEDS ORDERED: ONDANSETRON INJ 2 MG/ML 2 ML VIAL IV PRN (11:33)
[2021-06-03] MEDS ORDERED: LORazepam 1 MG/2 ML VIAL IV PRN (11:33)
[2021-06-03] MEDS ORDERED: HALOPERIDOL LACTATE 5 MG/ML 1 ML VIAL IM PRN (11:33)
[2021-06-03 13:24] LABS: Appearance Urine Clear (Clear); Bilirubin Urine Negative (Negative); Blood Urine Negative (Negative); Color Urine Yellow; Glucose Urine UA 2+ (Negative); Ketones Urine Negative (Negative); Leukocyte Esterase Urine Negative (Negative); Nitrite Urine Negative (Negative); Protein Urine Negative (Negative); Specific Gravity Urine 1.016 (1.000-1.030); Urobilinogen Urine Negative (Negative)
[2021-06-03 13:52] LABS: Benzodiazepine, Urine Neg (Neg); Cocaine, Urine Neg (Neg); MDMA (Ecstacy), Urine Neg (Neg); Methadone, Urine Neg (Neg); Opiate, Urine Pos (Neg); Phencyclidine, Urine Neg (Neg)
[2021-06-03 14:27] LABS: Amphetamines+Metham, Urine Neg (Neg); Barbiturates, Urine Neg (Neg)
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
--- NOTE | 2021-06-04 17:53 | Electrocardiogram Report ---
Test Reason : Blood Pressure : / mmHG Vent. Rate : 145 BPM Atrial Rate : 290 BPM P-R Int : 000 ms QRS Dur : 078 ms QT Int : 316 ms P-R-T Axes : 267 045 042 degrees QTc Int : 490 ms Poor data quality, interpretation may be adversely affected Atrial flutter with 2:1 A-V conduction Abnormal ECG When compared with ECG of 30-AUG-2018 07:01, Atrial flutter has replaced Sinus rhythm Vent. rate has increased BY [address] now depressed in Inferior leads ST no longer elevated in Anterior leads Confirmed by Angelo Lott ([id number]) on 06/04/2021 5:53:14 PM Referred By: Confirmed By:Angelo Lott
--- NOTE | 2021-06-04 17:54 | Electrocardiogram Report ---
Test Reason : Blood Pressure : / mmHG Vent. Rate : 112 BPM Atrial Rate : 112 BPM P-R Int : 128 ms QRS Dur : 092 ms QT Int : 352 ms P-R-T Axes : 091 061 075 degrees QTc Int : 480 ms Sinus tachycardia Possible Lateral infarct , age undetermined Nonspecific ST abnormality Abnormal ECG When compared with ECG of 03-JUN-2021 06:43, Sinus rhythm has replaced Atrial flutter ST less depressed in Inferior leads Confirmed by Angelo Lott ([id number]) on 06/04/2021 5:53:31 PM Referred By: KATHARINE ZALDIVAR Confirmed By:Angelo Lott
[2021-06-07 10:03] LABS: Codeine Urine NEGATIVE ng/mL (<50); Hydrocodone Urine NEGATIVE ng/mL (<50); Hydromor Urine NEGATIVE ng/mL (<50); Marijuana Quant, GCMS Urine 415 ng/mL (<5); Morphine Urine 2220 ng/mL (<50); Norhydrocodone Conf Ur NEGATIVE ng/mL (<50); Noroxycodone Urine NEGATIVE ng/mL (<50); Oxycodone Urine NEGATIVE ng/mL (<50); Oxymorph Urine NEGATIVE ng/mL (<50)
== END 2021-06-03 15:40 | disposition home or self-care (01) | DRG 918 ==
LOC: ED 06:34 → EDINP 09:38